=== PATIENT | male | born 2005 ===

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

== ENCOUNTER 2024-03-22 08:07 | Outpatient (AMB) | payer MEDICAID, SELFPAY ==
--- NOTE | 2024-03-22 11:38 | MHC.OFFVISWM ---
VS Expanded 03/22/24 11:53 Height 5 ft 8 in Weight 269 lb 2 oz BMI 40.9 Body Fat % 40.8 Body Fat Mass 109.8 Fat Free Mass 159.4 Visceral Fat Rating 19 Body Water % 40.8 Body Water Mass 109.8 Basal Metabolic Rate/Score 2,302 Intake Visit Reasons: [employer] BMI 40.9 Allergies banana Allergy (Mild, Verified 07/27/21 11:33) Redness of Skin SEASONAL ALLERGIES Allergy (Unknown, Uncoded 07/27/21 11:32) ITCHY EYES Medication List - Last Reconciled 03/22/24 by Gibson Dawson MD adalimumab (Humira(CF) Pen) 80 mg subcut DAILY albuterol 90 mcg/actuation mcg inhalation epinephrine IM DIRECTED flash glucose sensor (FreeStyle Randy 2 Sensor kit) As directed inhalational spacing device (ProChamber) As directed insulin lispro (Humalog Alec KwikPen (U-100)) 1 sliding scale dose subcut USEASDIRECTD semaglutide (Ozempic) 1 mg subcut QWEEK HPI HPI [employer] BMI 40.9: Details: Start time: 11.30am, End time: 12.11pm ?I spent 36 minutes speaking with the patient on the phone plus an additional 5 minutes reviewing and updating records for a total of 41 minutes HPI Comments Details: Previous weight loss efforts: Ozempic and Weight Management HHC: 7lbs in one year Wakes up: 1pm, Sleeps: 3am Breakfast: 10am (eggs and bread) Lunch: 3-4pm (burger and sandwiches, rice/beans and chicken) Dinner: 7pm (pasta, rice, chicken, burritos) Snacks: 5-6pm (Oreos, chips), 9-10pm (chips, oreos, burger, tortilla) Exercise: none Fluids: Coffee/tea: none, soda: diet soda, fluids: Crystal light, ETOH: none PFSH Medical History (Updated 03/22/24 @ 11:46 by Gibson Dawson MD) Asthma Insulin dependent type 2 diabetes mellitus Hidradenitis suppurativa Morbid obesity Abscess Surgical History History of appendectomy Family History (Updated 02/20/24 @ 13:56 by Isela Toro CMA) Mother No problems noted. Father No problems noted. Social History (Updated 02/20/24 @ 13:56 by Isela Toro CMA) Alcohol intake: never Patient Tobacco Use Status: Never used Tobacco Telehealth Telehealth Telehealth Platform: Telephone Location of provider rendering services: practice address Location of patient: address on file Patient Identification confirmed using: Name, : Yes Telehealth method: voice only Patient verbally consented to treatment: Yes Patient verbally consented to billing insurance company: Yes Patient informed of any privacy concerns related to visit: Yes Minutes spent on Phone/Video with Pt.: 41 Assessment & Plan Assessment & Plan (1) Morbid obesity: Code(s): E66.01 - Morbid (severe) obesity due to excess calories Category: Medical Plan: 1.? Plan for lap sleeve gastrectomy. If diaphragmatic or ventral hernias are present at time of surgery, these will be repaired laparoscopically as well. I emphasized the importance of close follow-up, adherence to instructions and good communication. The surgery does not replace the need to change your lifestlyle which is the cause of the obesity problem. The surgery provides the motivation to try again to change your lifestyle, it reduces the appetite and make the transition to a better lifestyle easier and doubles the amount of weight you would lose compared to doing the lifestyle change without the surgery. You will need to be on a liquid diet with protein shakes for 2 weeks before surgery to maximize weight loss and boost your nutritional status to recover better from surgery and also for the first two weeks after surgery to let the stomach heal before we introduce other foods. After the first 2 weeks we will introduce protein bars and soft foods like scrambled eggs, cottage cheese and yogurt and after the 6th week will introduce meat, fish and cooked vegetables in small amounts. Over time you should be able to eat everything in small amounts. Side effects like nausea, vomiting, heartburn or abdominal pain are not common in the practice unless you are not following in the practice. This operation requires lifetime commitment to following in our practice and communication with me. You will much less weight and experience side effects if you don?t communicate or not following in the practice. Complications are rare and in our practice is about 1/10 of the national average. However, you can develop bleeding that may require transfusion (hasn?t happened for year in the practice), you may from complications (we did not have any deaths in the practice) and infections. Infections are usually a result of breakdown in communication or not understanding or following directions correctly. They are difficult to treat, they can happen during the first 6 weeks, they may require to be in the hospital for weeks or even months, not being able to eat by mouth and you may have drains and surgeries to try and correct the issue. Other risks and complications include possible conversion to an open procedure, leaks, small bowel obstruction, blood clots, cardiac, or pulmonary complications, as terminal gauger complications such as ulcers, insufficient weight loss and vitamin deficiencies. The patient is not sure she wants to proceed with surgery at this time. She does not wish to do any preoperative work-up at this time and she will get back to me if she changes her mind.
[2024-03-22 11:53] VITALS: BMI 40.9
== END 2024-03-22 12:12 | disposition home or self-care (01) ==
LOC: HO.HBS 08:07
PROVIDERS: PCP Pediatrics; Visit Provider Surgery
DX: E66.813 Obesity, class 3 (principal); Z68.55 Body mass index [BMI] pediatric, 120% of the 95th percentile for age to less than 140% of the 95th percentile for age
CPT/HCPCS: 99203

== ENCOUNTER → 2024-03-22 08:07 | Outpatient (BNVA) | payer MEDICAID, SELFPAY | PROVIDERS: PCP Pediatrics; Visit Provider Surgery ==

== ENCOUNTER 2024-05-13 13:23 | Emergency (ER) | payer MEDICAID, SELFPAY ==
[2024-05-13 13:41] VITALS: BP 118/58; PULSE 79; RESP 19; TEMP 36.6; O2SAT 98; BMI 41.1
--- NOTE | 2024-05-13 13:49 | ED.EXTPRO ---
HPI - Extremity Problem General Chief complaint: Extremity Injury, Upper Stated complaint: R Arm Pain Time Seen by Provider: 05/13/24 13:49 Source: patient and RN notes reviewed Mode of arrival: ambulatory Limitations: no limitations History of Present Illness ED Provider: Delma Loyola PA-C HPI Narrative: This is a 18-year-old male, with a history of type 2 diabetes, asthma, and hydradenitis suppurativa, who presents emergency department with concerns for right arm redness and pain. Patient states that they have a history of abscesses, and in has noticed increased pain, and drainage from the right axilla. No fevers or chills. Denies any chest pain, shortness for breath, abdominal pain, nausea, vomiting or diarrhea. Related Data Home Medications ?Medication ?Instructions ?Recorded ?Confirmed adalimumab 80 mg/0.8 mL 80 mg subcut DAILY 02/20/24 03/22/24 subcutaneous pen kit (Humira(CF) Pen) epinephrine 0.3 mg/0.3 mL IM DIRECTED anaphylaxis 02/20/24 03/22/24 injection, auto-injector flash glucose sensor (FreeStyle #1 ea 02/20/24 03/22/24 Randy 2 Sensor kit) inhalational spacing device #1 ea 02/20/24 03/22/24 (ProChamber) semaglutide 1 mg/dose (4 mg/3 mL) 1 mg subcut QWEEK 02/20/24 03/22/24 subcutaneous pen injector (Ozempic) albuterol 90 mcg/actuation aerosol mcg inhalation 03/22/24 03/22/24 inhaler insulin lispro 100 unit/mL 1 sliding scale dose subcut 03/22/24 03/22/24 subcutaneous half-unit pen USEASDIRECTD (Humalog Alec KwikPen (U-100)) Previous Rx's ?Medication ?Instructions ?Recorded cephalexin 500 mg capsule 500 mg PO QID 7 days #28 caps 05/13/24 doxycycline hyclate 100 mg capsule 100 mg PO BID 7 days #14 caps 05/13/24 Allergies Allergy/AdvReac Type Severity Reaction Status Date / Time banana Allergy Mild Redness of Verified 05/13/24 13:42 Skin SEASONAL ALLERGIES Allergy Unknown ITCHY EYES Uncoded 05/13/24 13:42 Review of Systems Review of Systems: Yes all other systems are reviewed and are negative Constitutional: Constitutional: Reports as per [facility] Past Medical History Medical History (Updated 05/13/24 @ 13:50 by PERLITA Fong) Asthma Insulin dependent type 2 diabetes mellitus Hidradenitis suppurativa Morbid obesity Abscess Surgical History History of appendectomy Family History Family History (Updated 02/20/24 @ 13:56 by Isela Toro CMA) Mother No problems noted. Father No problems noted. Social History Social History (Updated 02/20/24 @ 13:56 by Isela Toro CMA) Alcohol intake: never Patient Tobacco Use Status: Never used Tobacco Advance Directives: No Advance Directives Information Provided: Yes Do you have a plan to hurt others: No Plan Physical Exam Vital Signs: Vital Signs: Last Vital Signs Temp 98 F 05/13/24 14:07 Pulse 79 05/13/24 14:07 Resp 19 05/13/24 14:07 BP 118/58 L 05/13/24 14:07 Pulse Ox 98 05/13/24 14:07 O2 Del Method Room Air 05/13/24 14:07 BMI result Body Mass Index 41.1 Const: General: cooperative, comfortable and no acute distress Orientation/consciousness: patient oriented x3 Limitations: no limitations HEENT: Head: Yes normal to inspection, Yes normocephalic and Yes atraumatic Ears: hearing grossly normal bilaterally General nose exam: Normal external nose present Face and sinus: Yes normal facial exam Mouth: Normal oral and palatal mucosa present, oropharynx normal and moist mucous membranes Throat: Yes posterior oropharynx normal Eyes: General: appearance normal, both eyes and all related structures Eyelids: Yes eyelids normal Conjunctivae: conjunctivae normal Sclerae: sclerae normal Pupils: Equal, round and reactive pupils present EOM: EOMs intact bilaterally Neck: Neck: Yes normal visual inspection, Yes full ROM and Yes no lymphadenopathy Lymphatic: no lymphadenopathy noted Chest: Chest palpation & inspection: normal inspection of the chest Resp: Effort & Inspection: normal respiratory effort and able to speak in complete sentences Cardio: Rate: regular rate Rhythm: regular rhythm Heart sounds: S1 normal heart sound present and S2 normal heart sound present GI: Inspection: Yes normal to inspection Skin: Other: Right axilla, with 2 cm superficial abrasion noted with slight erythema, and tenderness, no induration or warmth. No fluctuance. General skin exam: no rashes or lesions noted Trauma: no lacerations or abrasions Wounds: no wounds Neuro: General: patient oriented x3 and moves all extremities Cranial nerves: Yes Equal, round and reactive pupils present Extrem: General: Yes normal to inspection Right upper extremity: normal to inspection Left upper extremity: normal to inspection Right lower extremity: normal to inspection Left lower extremity: normal to inspection Medical Decision Making Medical Decision Making MDM Narrative: This is a 18-year-old male, with a history of type 2 diabetes, and hydradenitis suppurativa who presents emergency department with complaints of right arm pain, drainage, and redness x4 days. On arrival, vital signs within normal limits. He is speaking in full sentences under no acute distress. No palpable abscess noted within the right axilla. Does have slight erythema and warmth, will treat as cellulitis. There is no area of abscess that needs to be excised and drained. Discussed findings with patient. Discussed strict return precautions. He understands agrees with plan. Discharged on doxycycline and Keflex due to history of diabetes. Patient stable for discharge Differential Diagnosis Differential Diagnoses: The differential diagnosis associated with the presentation includes Abscess, cyst, cellulitis, hydradenitis suppurativa Admission/Observation Consideration of admission/observation: Escalation of care including admission/observation considered Discharge Plan Discharge Clinical Impression: Hidradenitis suppurativa Patient Disposition: Home, Self-Care Instructions: Hidradenitis Suppurativa (ED) Additional Instructions: You were seen in the emergency department due to right arm redness and drainage. There is no abscess that we need to go ahead and open and drained at this time. Please take prescribed antibiotic as directed, finish the entire course even if your symptoms improve. Watch for any new or worsening symptoms including but not limited to increased redness, pain, drainage, swelling. If any of these occur, please return for re-evaluation. I am also giving you a referral to the [facility], they often times can help with primary care resources. Prescriptions: New cephalexin 500 mg capsule 500 mg PO QID 7 Days Qty: 28 0RF doxycycline hyclate 100 mg capsule 100 mg PO BID 7 Days Qty: 14 0RF No Action (DME) FreePromimic Randy 2 Sensor Kit See Rx Instructions .ROUTE DIRECTED Qty: 1 Rx Instructions: As directed Ozempic 1 mg/dose (4 mg/3 mL) pen injector 1 mg subcut QWEEK epinephrine 0.3 mg/0.3 mL auto-injector IM DIRECTED (DME) ProChamber Spacer See Rx Instructions .ROUTE DIRECTED Qty: 1 Rx Instructions: As directed Humira(CF) Pen 80 mg/0.8 mL pen injector kit 80 mg subcut DAILY Rx Instructions: administer as 2 x 40 mg doses per day for 2 days insulin lispro [Humalog Alec KwikPen U-100] 100 unit/mL insulin pen, half-unit 1 sliding scale dose subcut USEASDIRECTD albuterol 90 mcg/actuation aerosol inhalation Referrals: [facility] [Primary Care Provider] - Interventions: ED Discharge Assessment Last Done: 05/13/24 14:07 Discharge Date/Time: 05/13/24 14:07 Print Language: Romansh
--- OUTSIDE RECORDS SUMMARY | 2024-05-13 13:53 | XMS_ITS | Encounter Summary ---
Author Organization [facility] Address [address] [place] [address] Care Team Providers Care Public Relations Counselor Name Role Phone Britt Jalloh Primary Care Provider [phone] Encounter Details Date Type Department Care Team (Late st Contact Info) Description 08/30/2023 External Result Entry [facility] 4th Floor [address] [place] [phone] Concrete Smoother: Karey Rai LPN Social History Tobacco Use Types Packs/Day Years Used Date Smoking Tobacco: Unknown Sex and Gender Information Value Date Recorded Sex Assigned at Male 08/25/2023 11:49 AM EDT Legal Sex Male 3:26 PM EST Gender Identity Not on file Sexual Orientation Not on file documented as of this encounter Plan of Treatment Upcoming Encounters Date Type Department Care Team (Late st Contact Info) Description 06/27/2024 11:00 AM EDT Office Visit [facility] 2nd Floor [address] [place] [address] Concrete Smoother: Altagracia Sutton MD [address] [place] [address] documented as of this encounter Visit Diagnoses Not on filedocumented in this encounter Care Teams Public Relations Counselor Relationship Specialty Start Date End Date Britt Jalloh PCP - General Pediatrics 03/15/23 documented as of this encounter
--- OUTSIDE RECORDS SUMMARY | 2024-05-13 13:53 | XMS_ITS | Encounter Summary ---
Author Organization [facility] Address [address] [place] [address] 7[address] [place] [address] Care Team Providers Care Pin Machine Operator Name Role Phone Britt Jalloh MD Primary Care Provider [phone] Hui Gavin Primary Care Provider [phone] Reason for Referral * Consultation (Routine) - Closed Specialty Diagnoses / Procedures Referred By Contac t Referred To Contact Optometry Diagnoses Myopia of both eyes Britt Jalloh MD [address] [place] [address] Phone: tel: fax: Referral ID Status Reason Start Date Expiration Date V isits Requested Visits Authorized [id number] Closed Specialty Services Required 09/01/2023 08/31/2024 1 1 Encounter Details Date Type Department Care Team (Late st Contact Info) Description 09/01/2023 Orders Only [facility] [address] [place] [id number] Britt Jalloh MD [address] [place] [address] [phone] Myopia of both eyes (Primary Dx) Social History Tobacco Use Types Packs/Day Years Used Date Smoking Tobacco: Never Passive Smoke Exposure: Never Smokeless Tobacco: Never Alcohol Use Standard Drinks/Week Comments Never 0 (1 standard drink = 0.6 oz pur e alcohol) Depression Answer Date Recorded Patient Health Questionnaire-9 Score 8 08/15/2023 Patient Health Questionnaire-9 Score 8 08/15/2023 Last PHQ-9: Questionnaire Data Not on file 0 08/15/2023 Housing Stability Answer Date Recorded What is your housing situation today? I have nadia palacios 01/10/[address] you li ve. Do you have problems with any of the following? None of the above 01/10/2023 Food Insecurity Answer Date Recorded Within the past 12 months, y ou worried that your food would run out before you got money to buy more: Often true 02/28/2023 Within the past 12 months,th e food you bought just didn't last and you didn't have enough money to get more: Often true 07/2022 Transportation Answer Date Recorded In the past 12 months, has l ack of transportation kept you from medical appts, meetings, work or from getting things needed for daily living? Yes, it has kept me from medical appointments or getting medications.;Yes, it has kept me from non-medical meetings, work, or getting things that I need 02/28/2023 Utilities Answer Date Recorded In the past 12 months, has t he electric, gas, oil or water company threatened to shut off services in your home? Yes 02/28/2023 Depression Answer Date Recorded Patient Health Questionnaire-2 Score 2 08/15/2023 Sex and Gender Information Value Date Recorded Sex Assigned at Male 01/24/2022 10:28 AM EDT Legal Sex Male 10:28 AM EDT Gender Identity Male 01/24/2022 10:28 AM EDT Sexual Orientation Bisexual 10/06/2023 3: 54 PM EDT Sexual Orientation Asexual 10/06/2023 3: 54 PM EDT documented as of this encounter Plan of Treatment Scheduled Referrals Name Type Priority Associated Diagnoses Orde r Schedule Referral to Optometry, Internal Outpatient Referral Routine Myopia of both eyes Expected: 09/01/2023 (Approximate), Expires: 08/31/2024 documented as of this encounter Visit Diagnoses Diagnosis Myopia of both eyes- Primary documented in this encounter Additional Health Concerns Assessment Noted Time PHQ-9 Depression Total Score: 8 08/15/19 24 11:24 AM EDT documented as of this encounter Care Teams Pin Machine Operator Relationship Specialty Start Date End Date Britt Jalloh MD [address] [place] [id number] PCP - General Pediatrics 11/20/15 01/31/24 Hui Gavin FNP [address] [place] [id number] PCP - General Family Medicine 02/01/24 documented as of this encounter
--- OUTSIDE RECORDS SUMMARY | 2024-05-13 13:53 | XMS_ITS | Encounter Summary ---
Author Organization [employer] Address [address] [place] [address] Care Team Providers Care Professor Of Historical Theology Name Role Phone Britt Jalloh MD Primary Care Provider [phone] Hui Gavin Primary Care Provider [phone] Reason for Visit * Reason Onset Date Comments PT1 03/15/2023 Encounter Details Date Type Department Care Team (Late st Contact Info) Description 03/15/2023 Telephone [facility] [address], [place] [phone] Britt Jalloh MD [address] [place], [place] [phone] PT1 Social History Tobacco Use Types Packs/Day Years Used Date Smoking Tobacco: Never Passive Smoke Exposure: Never Smokeless Tobacco: Never Alcohol Use Standard Drinks/Week Comments Never 0 (1 standard drink = 0.6 oz pur e alcohol) Depression Answer Date Recorded Patient Health Questionnaire-9 Score 9 02/24/2023 Patient Health Questionnaire-9 Score 9 02/24/2023 Last PHQ-9: Questionnaire Data Not on file 1 04/27/2022 Housing Stability Answer Date Recorded What is [...] Date Recorded Patient Health Questionnaire-2 Score 2 02/24/2023 Sex and Gender Information Value Date Recorded Sex Assigned at Male 01/24/2022 10:28 AM EDT Legal Sex Male 10:28 AM EDT Gender Identity Male 01/24/2022 10:28 AM EDT Sexual Orientation Bisexual 10/06/2023 3: 54 PM EDT Sexual Orientation Asexual 10/06/2023 3: 54 PM EDT documented as of this encounter Miscellaneous Notes * Telephone Encounter - Nell Mathews - 03/16/2023 2:57 PM EST PT 1 Initiated using site pt will receive a notice from with instructions * Telephone Encounter - Aiden Nevarez - 03/15/2023 3:55 PM EST PT1 needed Date: 08/25/23 Time: 10:30 Visits: N/A Address: [address] [place] [id number] Facility: N/A Wheel Chair: no Claim Investigator Needed: Yes documented in this encounter Plan of Treatment Not on file documented as of this encounter Visit Diagnoses Not on filedocumented in this encounter Additional Health Concerns Assessment Noted Time PHQ-9 Depression Total Score: 9 02/25/20 23 5:02 PM EST documented as of this encounter Care Teams Professor Of Historical Theology Relationship Specialty Start Date End Date Britt Jalloh MD [address] [place] [phone] PCP - General Pediatrics 11/20/15 01/31/24 Hui Gavin FNP [address] [place] [phone] PCP - General Family Medicine 02/01/24 documented as of this encounter
--- OUTSIDE RECORDS SUMMARY | 2024-05-13 13:53 | XMS_ITS | Encounter Summary ---
Author Organization [facility] Address [address] [place] [address] Care Team Providers Care Director Of Health Education Name Role Phone Britt Jalloh MD Primary Care Provider [phone] Hui Gavin Primary Care Provider [phone] Reason for Visit * Reason Onset Date Comments PT1 12/29/2023 Encounter Details Date Type Department Care Team (Late st Contact Info) Description 12/29/2023 Telephone [facility] [address] [place], [place] [phone] Britt Jalloh MD [address] [place], [place] [phone] PT1 Social History Tobacco Use Types Packs/Day Years Used Date Smoking Tobacco: Never Passive Smoke Exposure: Never Smokeless Tobacco: Never Alcohol Use Standard Drinks/Week Comments Never 0 (1 standard drink = 0.6 oz pur e alcohol) Depression Answer Date Recorded Patient Health Questionnaire-9 Score 11 11/18/2023 Patient Health Questionnaire-9 Score 11 11/18/2023 Last PHQ-9: Questionnaire Data Not on file 0 11/18/2023 Housing Stability Answer Date Recorded What is [...] Answer Date Recorded Patient Health Questionnaire-2 Score 4 11/18/2023 Sex and Gender Information Value Date Recorded Sex Assigned at Male 01/24/2022 10:28 AM EDT Legal Sex Male 10:28 AM EDT Gender Identity Male 01/24/2022 10:28 AM EDT Sexual Orientation Bisexual 10/06/2023 3: 54 PM EDT Sexual Orientation Asexual 10/06/2023 3: 54 PM EDT documented as of this encounter Miscellaneous Notes * Telephone Encounter - Lyudmila Licona - 12/29/2023 10:29 AM EDT Patient calling requesting PT1 Home Address verified: Y/N: Yes Provider name or facility name: [facility] Facility Address: [address] [place] [address] Escort needed: Y/N: Yes Do you have a wheelchair: Y/N: No If yes- Manual or electric: n/a Visits: 1 x month documented in this encounter Plan of Treatment Not on file documented as of this encounter Visit Diagnoses Not on filedocumented in this encounter Additional Health Concerns Assessment Noted Time PHQ-9 Depression Total Score: 11 024 12:19 PM EDT documented as of this encounter Care Teams Director Of Health Education Relationship Specialty Start Date End Date Britt Jalloh MD [address] [place] [id number] PCP - General Pediatrics 11/20/15 01/31/24 Hui Gavin FNP [address] [place] [phone] PCP - General Family Medicine 02/01/24 documented as of this encounter
--- OUTSIDE RECORDS SUMMARY | 2024-05-13 13:53 | XMS_ITS | Encounter Summary ---
Author Organization [facility] Address [address] [place] [address] 7t [place] [address] Care Team Providers Care Hand Silvering Supervisor Name Role Phone Britt Jalloh MD Primary Care Provider [phone] Hui Gavin Primary Care Provider [phone] Reason for Referral * Imaging (Routine) - Closed Specialty Diagnoses / Procedures Referred By Contac t Referred To Contact Radiology Diagnoses Cervical lymphadenopathy Hidradenitis suppurativa Procedures CT Soft Tissue Neck w/ Contrast Britt Jalloh MD [address] [place] [address] Phone: tel: fax: [facility] Referral ID Status Reason Start Date Expiration Date Visits Re quested Visits Authorized [id number] Closed 08/17/2023 08/16/2024 1 1 Encounter Details Date Type Department Care Team (Late st Contact Info) Description 08/17/2023 Orders Only [facility] [address], [place] [phone] Britt Jalloh MD [address] [place], [place] [phone] Cervical lymphadenopathy (Primary Dx); Hidradenitis suppurativa Social History Tobacco Use Types Packs/Day Years [...] of this encounter Plan of Treatment Scheduled Orders Name Type Priority Associated Diagnoses Orde r Schedule CT Soft Tissue Neck w/ Contrast Imaging Routine Cervical lymphadenopathy Hidradenitis suppurativa Expected: 08/17/2023, Expires: 08/16/2024 documented as of this encounter Visit Diagnoses Diagnosis Cervical lymphadenopathy- Primary Enlargement of lymph nodes Hidradenitis suppurativa Hidradenitis documented in this encounter Additional Health Concerns Assessment Noted Time PHQ-9 Depression Total Score: 8 08/15/19 24 11:24 AM EDT documented as of this encounter Care Teams Hand Silvering Supervisor Relationship Specialty Start Date End Date Culcea, Britt, MD [address] [place] [address] PCP - General Pediatrics 11/20/15 01/31/24 Hui Gavin FNP [address] [place] [address] PCP - General Family Medicine 02/01/24 documented as of this encounter
--- OUTSIDE RECORDS SUMMARY | 2024-05-13 13:53 | XMS_ITS | Clinical Summary ---
Author Organization [facility] Address [address] [place] [phone] Phone Care Team Providers Care Dairy Equipment Mechanic Name Role Phone Unavailable Primary Care Provider Unavailabl e Immunizations Immunization Administration Dates Next Due DTaP 5 10/08/2008, 7,04/21/2005,2004,2004 Hep A, ped/adol 05/25/2006,11/15/2005 Hep B, ped/adol 04/21/2005,2004,2004 Hib (HbOC) 04/05/2006,02/09/2005,2004 IPV 10/08/2008, 6,02/09/2005,2004 Influenza Split 12/12/2012 Influenza, injectable, quadr ivalent, preservative free 12/27/2013 Influenza, injectable, trivalent 12/14/2011,02/24 MMR 10/08/2008,11/15/2005 Pneumococcal Conjugate 04/05/2006,2005,02/09/2005,2004 Varicella 10/08/2008,11/15/2005 Social History Tobacco Use Types Packs/Day Years Used Date Smoking Tobacco: Never Assessed Sex and Gender Information Value Date Recorded Sex Assigned at Not on file Legal Sex Male 4:56 PM EDT Gender Identity Not on file Sexual Orientation Not on file Last Filed Vital Signs Vital Sign Reading Time Taken Comments Blood Pressure 113/62 06/05/2014 12:00 AM EDT Pulse 88 06/05/2014 12:00 AM EDT Temperature 36.4 ??C (97.6 ??F) 12/27/2013 12:00 AM E DT Respiratory Rate - - Oxygen Saturation - - Inhaled Oxygen Concentration - - Weight 49.4 kg (109 lb) 06/05/2014 12:00 AM EDT Height 138.2 cm (4' 6.4 ) 06/05/2014 12:00 AM ED T Body Mass Index 25.89 06/05/2014 12:00 AM EDT Body Mass Index Percentile 98.16% 06/05/2014 12: 00 AM EDT Growth Chart: [facility] (Boys, 2-2 0 Years) Plan of Treatment Health Maintenance Due Date Last Done Comments Men B Vaccine (1 of 2 - Standard) 2020 Influenza Vaccines (#1) 2023 02/11/20 21, 12/28/2017, 01/05/2017, Additional history exists COVID-19 Vaccine ( - 2023-2 5 season) 2023 DTaP,Tdap,and Td Vaccines (8 - Td or Tdap) 09/03/2031 09/02/2021, 08/17/2016, 10/08/2008, Additional history exists Hepatitis B Vaccines Completed 04/21/2005, 2004, 2004, Additional history exists HIB Vaccines Completed 04/05/2006, 01/25, 2004 Pneumococcal Vaccine Completed 04/05/2006, 04/21/2005, 02/09/2005, Additional history exists Hepatitis A Vaccines Completed 05/25/2006, 11/16/19 06 IPV Vaccines Completed 10/08/2008, 03/28, 02/09/2005, Additional history exists MMR Vaccines Completed 10/08/2008, 11/15/2005 Varicella Vaccines Completed 10/08/2008, 11/15/2005 HPV Vaccines Completed 02/23/2017, 08/17/2016 Meningococcal Vaccine Completed 09/02/2021, 017
--- OUTSIDE RECORDS SUMMARY | 2024-05-13 13:53 | XMS_ITS | Referral Summary ---
Author Organization [facility] Address [address] [place] [address] Care Team Providers Care Crusher Foreman Name Role Phone Britt Jalloh Primary Care Provider [phone] Encounters Date Type Department Care Team Description 05/01/2024 Refill [facility] [address]nd [address] [place] [address], [place] [address] Ball Winder: Altagracia Sutton MD 04/30/2024 Telephone [facility] 4th Floor [address] [place] [phone] Ball Winder: Altagracia Sutton MD PAC Appt Request - Established (Dr Merritt ) 04/23/2024 Telephone [facility] [address] [phone] Ball Winder: Altagracia Sutton MD 03/26/2024 Telephone [facility] 4th Floor [address] [place] [phone] Ball Winder: Shwetha Buitrago LPN 03/06/2024 Telephone [facility] 4th Floor [address] [place] [phone] Ball Winder: Ana Rodriguez Telephone Intake, Staff PAC Appt Request - Established- Altagracia Kumari MD 03/01/2024 Documentation [facility] [address] [place] [address] Cynthia Rtoh CPhT Prior Authorization ([place] Approved for Humira 40mg/0.4ml Pen , #06/21, through [employer] [PA # [id number]]. Effective 03/01/2024 - 03/01/2025. May fill with [facility] Copay $0 #52 units /) from Last 3 Months Allergies Active Allergy Reactions Criticality Noted Date Comments Banana Rash High 05/25/2015 Facial edema Medications sertraline (ZOLOFT) 25 mg tablet SMARTSI Tablet(s) By Mouth Twice Daily 4 Active Ozempic 1 mg/dose (4 mg/3 mL) pen injector SMARTSI Milligram(s) SUB-Q Once a Week 3 Active multivitamin (THERAGRAN) tablet SMARTSI Tablet(s) By Mouth Daily 4 Active minocycline (MINOCIN,DYNACIN ) 100 mg capsule SMARTSI Capsule(s) By Mouth Twice Daily 4 Active melatonin 5 mg tablet SMARTSI-2 Tablet(s) By Mouth Every Night 4 Active Freestyle lancets 28 gauge USE DIRECTED TO CHECK BLOOD GLUCOSE UP TO 6 TIMES PER DAY. 3 Active FreeStyle Randy 2 Sensor kit USE TO REVIEW BLOOD SUGAR FOR TYPE 2 DIABETES 3 Active chlorhexidine (HIBICLENS) 4% external liquidIndication s:Hidradenitis suppurativa Apply topically to the affected area daily as needed for wound care. Wash affected areas in the shower daily. Do not apply above the neck as this is toxic to ears and eyes. 118 mL 2 4 Active acetaminophen (TYLENOL) 325 mg tablet 3 Active Ventolin HFA 90 mcg/actuation inhaler INHALE 2 PUFFS EVERY 4 HOURS NEEDED FOR WHEEZING OR SHORTNESS OF BREATH 3 Active cetirizine (ZyrTEC) 10 mg tablet SMARTSI Tablet(s) By Mouth Every Morning 3 Active EPINEPHrine (EPIPEN) 0.3 mg/0.3 mL injection syringe INJECT AUTO-INJECTOR FOR SEVERE ALLERGIC REACTION 3 Active adalimumab 80 mg/0.8 mL pen injector kitIndications:H idradenitis suppurativa Inject 2 pens (160 mg total) under the skin for 1 dose on day 1, then inject 1 pen (80 mg total) under the skin on day 15. 2.4 mL 01/03/2024 6:10 PM EDT 4 Active adalimumab (HUMIRA CF) 40 mg/0.4 mL pen injector kitIndications:H idradenitis suppurativa Inject 0.4 mL (40 mg total) under the skin once a week. Start weekly injections on day 29. 1.6 mL 5 04/26/2024 7:21 AM EST 4 Active clindamycin (CLEOCIN T) 1 % lotionIndication s:Hidradenitis suppurativa Apply to armpits, under breasts, groin area daily after showering and drying. 120mL=1month 60 mL 5 4 Active foam bandage (Mepilex) 4 X 4 bandage See admin instructions. 4 Active multivitamin-iro n-folic acid 18-400 mg-mcg tablet Take 1 tablet by mouth once a day. 4 Active ibuprofen (MOTRIN) 400 mg tablet 1 tab q 6 hours prn fever or pain 4 Active metFORMIN ER (GLUCOPHAGE XR) 500 mg tabletIndication s:Hidradenitis suppurativa,High risk medication use Take 2 tablets (1,000 mg total) by mouth daily with breakfast. 180 tablet 3 4 12/14/19 25 Active Active Problems No known active problems Social History Tobacco Use Types Packs/Day Years Used Date Smoking Tobacco: Unknown Tobacco Cessation:Counseling Given: Not Answered Sex and Gender Information Value Date Recorded Sex Assigned at Male 08/25/2023 11:49 AM EDT Legal Sex Male 3:26 PM EST Gender Identity Not on file Sexual Orientation Not on file Plan of Treatment Upcoming Encounters Date Type Department Care Team (Late st Contact Info) Description 06/27/2024 11:00 AM EDT Office Visit [facility] 2nd Floor [address] [facility], [place] [address] Ball Winder: Altagracia Sutton MD [address] [place] [address] Procedures * Due to [place] [employer] law, this organization might not be sharing negative HIV tests. Procedure Name Priority Date/Time Associated Diagnosis Comments COMPREHENSIVE METABOLIC PANEL Routine 09/08/2023 11:47 AM EDT High risk medication use HEPATITIS C ANTIBODY W/REFLEX TO HCV RNA, QUANTITATIVE PCR Routine 08/25/2023 11:52 AM EDT Hidradenitis suppurativa High risk medication use from Last 3 Months or Most Recently Relevant to Health Maintenance Results * Due to [place] [employer] law, this organization might not be sharing negative HIV tests. * (ABNORMAL) Comprehensive metabolic panel (09/08/2023 11:47 AM EDT) NA 137 135 - 145 mmol/L 09/08/2023 1:45 PM EDT [facility] K 3.9 3.5 - 5.3 mmol/L 09/08/2023 1:45 PM EDT [facility] Cl 101 98 - 107 mmol/L 09/08/2023 1:45 PM EDT [facility] CO2 24 24 - 32 mmol/L 09/08/2023 1:45 PM EDT [facility] Anion Gap 12 5 - 15 [facility] MANUAL 09/08/2023 1:45 PM EDT [facility] Glucose 191(H) 65 - 99 mg/dL 09/08/2023 1:45 PM EDT [facility] Creatinine 0.65 0.60 - 1.30 mg/dL 09/08/2023 1:45 PM EDT [facility] Calcium 9.1 8.6 - 10.5 mg/dL 09/08/2023 1:45 PM EDT [facility] Total Protein 7.7 6.0 - 8.0 g/dL 09/08/2023 1:45 PM EDT [facility] Albumin 4.3 3.5 - 5.2 g/dL 09/08/2023 1:45 PM EDT [facility] Bilirubin, Total 0.3 0.2 - 1.2 mg/dL 09/08/2023 1:45 PM EDT [facility] Alkaline Phosphatase 95 35 - 129 U/L 09/08/2023 1:45 PM EDT [facility] AST 29 10 - 40 U/L 09/08/2023 1:45 PM EDT [facility] ALT 37 10 - 40 U/L 09/08/2023 1:45 PM EDT [facility] BUN 14 7 - 23 mg/dL 09/08/2023 1:45 PM EDT [facility] eGFR >90 >=60 mL/min/1. 73m2 [facility] MANUAL 09/08/2023 1:45 PM EDT [facility] Comment:The estimated glomer ular filtration rate (eGFR) is calculated using a new formula developed by the NKF-ASN task force to eliminate race-based correction factors. The new formula uses serum/plasma creatinine, age, and gender to determine eGFR. A value below 60mls/min might indicate kidney disease and will be flagged. For additional information, see Radhames et al, Am J Kidney Dis. 2021;79(2):268- 288, A Unifying Approach for GFR estimation: Recommendations of the NKF-ASN Task Force on Reassessing the Inclusion of Race in Diagnosing Kidney Disease . Globulin, Total 3.4 2.1 - 4.2 g/dL [facility] MANUAL 09/08/2023 1:45 PM EDT [facility] A/G Ratio 1.3(L) 1.5 - 3.0 [facility] MANUAL 09/08/2023 1:45 PM EDT [facility] Blood Structure of peripheral vein / Unknown Venipuncture / Unknown 09/08/2023 11:47 AM EDT 09/08/2023 11:47 AM EDT Altagracia Kumari MD LAB BLOOD ORDERABLES Final R esult [facility] [address] [place] [address], * Hepatitis C Antibody w/Reflex to HCV RNA, Quantitative PCR (08/25/2023 11:52 AM EDT) Hepatitis C Antibody NON-REACT EMIR NON-REACT EMIR 08/26/2023 5:51 AM EDT [employer] [employer] [facility] Comment: HCV antibody was non-reactive. There is no laboratory evidence of HCV infection. In most cases, no further action is required. However, if recent HCV exposure is suspected, a test for HCV RNA (test code 18537) is suggested. For additional information please refer to http://education.Domee/faq/JBQ47z3 (This link is being provided for informational/ educational purposes only.) Blood Structure of peripheral vein / Unknown Venipuncture / Unknown 08/25/2023 11:52 AM EDT 08/25/2023 12:01 PM EDT Narrative [facility] - 08/26/2023 5:51 AM EDT [facility] Received Date:[id number] Radha Lei MD LAB BLOOD ORDERABLES Final Result [facility] [address] [facility] 3rd Floor, [place] [address], [place] [phone] [facility] [address] [facility] 3rd Floor, [place] [address], [place] [phone] from Last 3 Months or Most Recently Relevant to Health Maintenance Insurance [facility] Care Teams Crusher Foreman Relationship Specialty Start Date End Date Britt Jalloh PCP - General Pediatrics 03/15/23
--- OUTSIDE RECORDS SUMMARY | 2024-05-13 13:53 | XMS_ITS | Encounter Summary ---
Author Organization [facility] Address [address] 7t [place] [address] Care Team Providers Care Modeling Teacher Name Role Phone Britt Jalloh MD Primary Care Provider [phone] Hui Gavin Primary Care Provider [phone] Reason for Visit * Reason Onset Date Comments PT1 11/30/2023 Encounter Details Date Type Department Care Team (Late st Contact Info) Description 11/30/2023 Telephone [facility] [address] [place], [place] [phone] Britt Jalloh MD [address] [place], [place] [phone] PT1 Social History Tobacco Use Types Packs/Day [...] encounter Miscellaneous Notes * Telephone Encounter - Lis Borrego - 11/30/2023 12:27 PM EDT Patient grandmother calling requesting PT1 Home Address verified: Yes Provider name or facility name: [facility] Facility Address: [address] [place] [address] Escort needed: Yes Do you have a wheelchair: No If yes- Manual or electric: N/A Visits: 12 a year documented in this encounter Plan of Treatment Not on file documented as of this encounter Visit Diagnoses Not on filedocumented in this encounter Additional Health Concerns Assessment Noted Time PHQ-9 Depression Total Score: 11 024 12:19 PM EDT documented as of this encounter Care Teams Modeling Teacher Relationship Specialty Start Date End Date Britt Jalloh MD [address] [place] [address] PCP - General Pediatrics 11/20/15 01/31/24 Hui Gavin FNP [address] [place] [address] PCP - General Family Medicine 02/01/24 documented as of this encounter
--- OUTSIDE RECORDS SUMMARY | 2024-05-13 13:53 | XMS_ITS | Clinical Summary ---
Author Organization [facility] Address [address] [place] [address] Care Team Providers Care Baseball Winder Name Role Phone LiangBritt garcia Primary Care Provider [phone] Allergies Active Allergy Reactions Criticality Noted Date [...] Active Active Problems No known active problems Encounters Date Type Department Care Team Description 05/01/2024 Refill [facility] 2nd Floor [address] [facility], Second Floor [place] [phone] Bottom Steep Tender: Altagracia Sutton MD 04/30/2024 Telephone [facility] [address] [place] [phone] Bottom Steep Tender: Altagracia Sutton MD PAC Appt Request - Established (Dr Merritt ) 04/23/2024 Telephone [facility] [address] [place] [phone] Bottom Steep Tender: Altagracia Sutton MD 03/26/2024 Telephone [facility] [address] [place] [phone] Bottom Steep Tender: Shwetha Buitrago LPN 03/06/2024 Telephone [facility] [address] [place] [phone] Bottom Steep Tender: Ana Rodriguez Telephone Intake, Staff PAC Appt Request - Established- Altagracia Kumari MD 03/01/2024 Documentation [facility] [address] [address] Cynthia Roth CPhT Prior Authorization ([place] Approved for Humira 40mg/0.4ml Pen , #06/21, through [employer] [PA # [id number]]. Effective 03/01/2024 - 03/01/2025. May fill with [facility] Copay $0 #52 units /) from Last 3 Months Social History Tobacco Use Types Packs/Day Years [...] Description 06/27/2024 11:00 AM EDT Office Visit [facility] 2nd Floor [address] [facility], [place] [address] Bottom Steep Tender: Altagracia Sutton MD [address] [place] [address] Health Maintenance Due Date Last Done Comments HIV Screening 2004 1 Week [facility] 2004 1 Month [facility] 2004 2 Month [facility] 2004 4 Month [facility] 01/13/2005 6 Month [facility] 03/14/2005 9 Month WC 06/12/2005 12 Month [facility] 09/22/2005 15 Month [facility] 12/09/2005 18 Month [facility] 03/09/2006 24 Month [facility] 09/05/2006 30 Month [facility] 01/09/2007 3 to 21 Year [facility] 09/22/2007 Well Child Check 09/22/2007 COVID-19 Vaccine (2023-2 5 season) 2023 02/24/2023, 10/14/2020, 09/17/2020 Influenza Vaccine (#1) 2023 , 02/10/2021, 12/28/2017, Additional history exists Depression Screening and Follow-Up 03/27/2024 Social Drivers of Health Fanny ual Screening 03/27/2024 Basic Metabolic Panel 09/07/2024 09/08/2023 DTaP,Tdap,and Td Vaccines (8 - Td or Tdap) 09/03/2031 09/02/2021, 08/17/2016, 10/08/2008, Additional history exists RSV Vaccine (60+ years old a nd patients) (1 - 1-dose 75+ series) 09/22/2079 Hepatitis B Vaccines Completed 04/21/2005, 2004, 2004, Additional history exists Pneumococcal Vaccine: Pediat katelyn (0-5 Years) and At-Risk Patients (6-50 Years) Completed 04/05/2006, 04/21/2005, 02/09/2005, Additional history exists Varicella Vaccines Completed 10/08/2008, 11/15/2005 HPV Vaccines Completed 02/23/2017, 08/17/2016 Meningococcal Vaccine Completed 09/02/2021, 017 Hepatitis C Screening Completed 08/25/2023 Procedures * Due to [place] [employer] law, this organization might not be sharing [...] to Health Maintenance Results * Due to [place] [employer] law, this organization might not be sharing negative HIV tests. * (ABNORMAL) Comprehensive metabolic panel (09/08/2023 11:47 AM EDT) NA 137 135 - 145 mmol/L 09/08/2023 1:45 PM EDT [facility] K 3.9 3.5 - 5.3 mmol/L 09/08/2023 1:45 PM EDT [facility] Cl 101 98 - 107 mmol/L 09/08/2023 1:45 PM EDT [facility] CO2 24 24 - 32 mmol/L 09/08/2023 1:45 PM EDT [facility] Anion Gap 12 5 - 15 [facility] MANUAL 09/08/2023 1:45 PM EDT [facility] Glucose 191(H) 65 - 99 mg/dL 09/08/2023 1:45 PM EDT [facility] Creatinine 0.65 0.60 - 1.30 mg/dL 09/08/2023 1:45 PM EDT [facility] Calcium 9.1 8.6 - 10.5 mg/dL 09/08/2023 1:45 PM EDT [facility] Total Protein 7.7 6.0 - 8.0 g/dL 09/08/2023 1:45 PM EDT [facility] Albumin 4.3 3.5 - 5.2 g/dL 09/08/2023 1:45 PM EDT [facility] Bilirubin, Total 0.3 0.2 - 1.2 mg/dL 09/08/2023 1:45 PM EDT [facility] Alkaline Phosphatase 95 35 - 129 U/L 09/08/2023 1:45 PM EDT [facility] AST 29 10 - 40 U/L 09/08/2023 1:45 PM EDT [facility] ALT 37 10 - 40 U/L 09/08/2023 1:45 PM EDT [facility] BUN 14 7 - 23 mg/dL 09/08/2023 1:45 PM EDT [facility] eGFR >90 >=60 mL/min/1. 73m2 [facility] MANUAL 09/08/2023 1:45 PM EDT [facility] Comment:The estimated glomer ular [...] Globulin, Total 3.4 2.1 - 4.2 g/dL [facility] MANUAL 09/08/2023 1:45 PM EDT [facility] A/G Ratio 1.3(L) 1.5 - 3.0 [facility] MANUAL 09/08/2023 1:45 PM T [facility] Blood Structure of peripheral vein / Unknown Venipuncture / Unknown 09/08/2023 11:47 AM EDT 09/08/2023 11:47 AM EDT us Altagracia Kumari MD LAB BLOOD ORDERABLES Final R esult [facility] [address] [place] [address], [place] * Hepatitis C Antibody w/Reflex to HCV RNA, Quantitative PCR (08/25/2023 11:52 AM EDT) Hepatitis C Antibody NON-REACT EMIR NON-REACT EMIR 08/26/2023 5:51 AM EDT [facility] Comment: HCV antibody was non-reactive. There is no laboratory evidence of HCV infection. In most cases, no further action is required. However, if recent HCV exposure is suspected, a test for HCV RNA (test code 87253) is suggested. For additional information please refer to http://education.SurgiQuest/faq/ZMO64o3 (This link is being provided for informational/ educational purposes only.) Blood Structure of peripheral vein / Unknown Venipuncture / Unknown 08/25/2023 11:52 AM EDT 08/25/2023 12:01 PM EDT Narrative [facility] - 08/26/2023 5:51 AM EDT [facility] Received Date:[id number] Radha Lei MD LAB BLOOD ORDERABLES Final Result Performing Organization Address City/[facility]/ZIP Co de Phone Number JAZMIN KAPADIA [address] [facility] 3rd [address], [place] [address], [place] [phone] [facility] [address] [facility] 3rd Floor, [place] [address], [place] [phone] from Last 3 Months or Most Recently Relevant to [place] [id number] [facility] Care Teams Baseball Winder Relationship Specialty Start Date End Date Britt Jalloh PCP - General Pediatrics 03/15/23
--- OUTSIDE RECORDS SUMMARY | 2024-05-13 13:53 | XMS_ITS | Clinical Summary ---
Author Organization [employer] Address [address] [place] [address] 7[address] [place] [address] Care Team Providers Care City Sanitarian Name Role Phone Hui Gavin RHINA Primary Care Provider [phone] Allergies Active Allergy Reactions Criticality Noted Date Comments Banana Rash High 05/25/2015 Facial edema Medications Continuous Blood Gluc Sensor (FreeStyle Randy 2 Sensor) [facility] See Instructions, # 3 each, Refills 11, Tot. Refills 11, Maintenance, use to review blood sugars for type 2 diabetes, 11/02/21 14:53:00 EDT, Supply, 170.7, cm, 10/29/21 16:07:00 EDT, Height, 122.9, kg, 10/29/21 16:07:00 EDT, Dry Weight 11/03/19 Active glucose blood test strip See Instructions, # 200 each, Refills 11, Tot. Refills 11, Maintenance, to check BG upto x6/day for IDDM, 11/03/21 15:57:00 EDT, PA AUTH: [id number], Supply, 170.7, cm, 10/29/21 16:07:00 EDT, Height, 122.9, kg, 10/29/21 16:07:00 EDT, Dry Weight 11/04/19 Active Continuous Blood Gluc Match Up Person (FreeStyle Randy 2 [place]) device USE DIRECTED TO TEST BLOOD SUGAR 11/04/19 Active semaglutide (Ozempic, 1 MG/DOSE,) 4 MG/3ML solution pen-injector sc once a week Ac tive Blood Pressure Monitor kitIndications:Sheela vated blood pressure reading Use to check blood pressure once daily and when symptomatic. 1 kit 07/08/19 23 Active Continuous Blood Gluc Sensor (FreeStyle Randy 2 Sensor) [facility] See Instructions, # 1 each, Refills 1, Tot. Refills 1, Maintenance, use to review blood sugars for type 2 diabetes, 11/02/21 14:53:00 EDT, Supply, 170.7, cm, 10/29/21 16:07:00 EDT, Height, 122.9, kg, 10/29/21 16:07:00 EDT, Dry Weight 11/03/19 22 Active Alcohol Swabs (Alcohol Prep) 70 % pads USE DIRECTED UP TO 6 TIMES DAILY 11/04/19 22 Active insulin glargine (Lantus SoloStar) 100 UNIT/ML pen Lantus Solostar U-100 Insulin 100 unit/mL (3 mL) subcutaneous pen Inject by sub-q route. 11/04/19 22 Active BD Pen Needle Sana 2nd Gen 32G X 4 MM [facility] USE DIRECTED TO INJECT INSULIN X6-7 TIMES DAILY 05/20/19 23 Active sodium chloride (Rulo) 0.65 % nasal spray 1-2 spray on each nostril every 2-3 hours as needed for nasal congestion 30 mL 3 02/25/20 23 Active cetirizine (ZyrTEC) 10 MG tabletIndications: Non-seasonal allergic rhinitis due to other allergic trigger TAKE 1 TABLET BY MOUTH EVERY AM 90 tablet 1 02/25/20 23 Active Blood Pressure Monitoring (Omron 3 Series BP Monitor) device USE TO CHECK BLOOD PRESSURE ONCE DAILY AND WHEN EXPERENCING SYMPTOMS 07/26/19 23 Active Gauze Pads & Dressings (Gauze Dressing) 4 X4 padsIndications:Hi dradenitis suppurativa Use as directed 60 each 1 05/08/19 24 Active Multiple Vitamin (Multivitamin Adult) tabletIndications: Viral illness 1 tab daily 30 tablet 11 05/24/19 24 Active budesonide (Rhinocort AQ) 32 MCG/ACT nasal sprayIndications:N on-seasonal allergic rhinitis due to other allergic trigger Administer 1-2 sprays into each nostril in the morning. 8.43 mL 3 06/15/19 24 025 Active melatonin 5 MG tabletIndications: Sleep disturbance TAKE 1 TO 2 TABLETS BY MOUTH EVERY NIGHT 1 HOUR BEFORE BEDTIME FOR SLEEP 180 tablet 08/08/19 24 Active minocycline 100 MG capsuleIndications :Hidradenitis suppurativa,Hydrad enitis TAKE 1 CAPSULE BY MOUTH TWICE DAILY 60 capsule 08/08/19 24 Active EPINEPHrine (Epipen) 0.3 MG/0.3ML injection syringeIndications :Allergy to banana INJECT AUTO-INJECTOR FOR SEVERE ALLERGIC REACTION 6 each 1 08/08/19 24 Active Acetaminophen Extra Strength 500 MG tabletIndications: Acute rhinosinusitis TAKE 1 TABLET BY MOUTH EVERY 6 HOURS NEEDED FOR MILD PAIN 60 tablet 08/08/19 24 Active ibuprofen 400 MG tabletIndications: Viral illness 1 tab q 6 hours prn fever or pain 30 tablet 09/21/19 24 Active Chlorhexidine Gluconate 4 % solution Apply topically if needed each day. 08/25/19 24 Active clindamycin (Cleocin T) 1 % lotion Apply to armpits, under breasts, groin area daily after showering and drying. 120mL=1month 09/08/19 24 Active metFORMIN XR (Glucophage-XR) 500 MG 24 hr tablet Take 1,000 mg by mouth with breakfast. 09/08/19 24 025 Active sertraline (Zoloft) 50 MG tabletIndications: Current moderate episode of major depressive disorder without prior episode (CMS/HCC),Anxiety 1 tab po twice daily. 60 tablet 1 11/18/19 24 Active albuterol (Ventolin HFA) 108 (90 Base) MCG/ACT inhalerIndications :Wheezing Take 2 puffs by inhalation q 4 hrs prn wheezing, cough 18 g 1 11/18/19 24 Active Active Problems Problem Noted Date Diagnosed Date Hidradenitis suppurativa 11/18/2022 Steatosis of liver 03/09/2022 Mixed anxiety and depressive disorder 03/09/2022 Acne 03/09/2022 Type 2 diabetes mellitus wit h other skin complication, without long-term current use of insulin 01/05/2022 Obesity, childhood 01/05/2022 Deformity of foot 10/20/2016 Resolved Problems Problem Noted Date Diagnosed Date Resolved Date Electrocardiogram abnormal 12/08/2020 1 04/27/2022 Injury of foot 09/22/2015 02/24/2023 Encounters Date Type Department Care Team Description 05/09/2024 Patient Outreach [facility] [address] [place] [address] Hui Gavin FNP Care Coordination ([facility] outreach for SDOH PT-1 and food needs-referral completed /) 05/09/2024 Telephone [facility] [address] [place] [address] Hui Gavin FNP PT-1 04/18/2024 11:15 AM EST Office Visit [facility] [address] [place] [address] Mary Ware, OD Myopia of both eyes (Primary Dx) 02/27/2024 3:15 PM EST Office Visit [facility] [address] [place] [address] Nita Cejaica, OD Controlled type 2 diabetes mellitus without complication, without long-term current use of insulin ([facility]) (Primary Dx); Myopia of both eyes 02/27/2024 Travel 02/13/2024 Telephone [facility] [address] [place] [phone] Hui Gavin FNP 02/12/2024 Telephone [facility] [address] [place] [phone] Carroll Agee MD [facility] Follow up from Last 3 Months Immunizations Name Administration Dates Next Due DTaP 10/08/2008, 7,04/21/2005,02/09,2004 DTaP / Hep B / IPV 2004 DTaP, 5 pertussis antigens 10/08/2008,,04/21/2005,02/09,2004 HPV 9-Valent 02/23/2017,08/17/2016 Hep A, Unspecified 05/25/2006,11/15/2005 Hep A, ped/adol, 2 dose 05/25/2006,11/15/2005 Hep B, Adolescent or Pediatric 04/21/2005,2004,2004 Hep B, Unspecified 04/21/2005,2004, 005 HiB, unspecified 04/05/2006,02/09/2005, 5 Hib (HbOC) 04/05/2006,02/09/2005,2004 IPV 10/08/2008, 6,02/09/2005,12/10 Influenza injectable quadriv alent IIV4 with preservative 02/24/2023,12/27/2013 Influenza injectable quadriv alent preservative free 02/10/2021,12/28/2017,01/05/2017,01/13,01/07/2015,12/27/2013 Influenza, IIV3, injectable 12/14/2011, 1 Influenza, Split (incl. [place] antigen) 12/12/2012 MMR 10/08/2008,11/15/2005 Meningococcal MCV4P ACYW-135 09/02/2021,08/18/19 17 Pfizer Covid-19 Vaccine 12+ 02/24/2023 Pneumococcal Conjugate PCV 7 04/05/2006, 04/21/2005,02/09/2005,12/10 Tdap 09/02/2021,08/17/2016 Varicella 10/08/2008,11/15/2005 Family History Medical History Relation Name Comments Glaucoma Father Diabetes Mother Relation Name Status Comments Father Mother Social History Tobacco Use Types Packs/Day Years Used Date Smoking Tobacco: Never Passive Smoke Exposure: Never Smokeless Tobacco: Never Tobacco Cessation:Counseling Given: Not Answered Alcohol Use Standard Drinks/Week Comments Never 0 [...] Orientation Asexual 10/06/2023 3: 54 PM EDT Last Filed Vital Signs Vital Sign Reading Time Taken Comments Blood Pressure 118/74 01/24/2024 2:09 PM EDT Pulse 80 01/24/2024 2:09 PM EDT Temperature 36.8 ??C (98.2 ??F) 01/24/2024 2:09 PM ED T Respiratory Rate 20 01/24/2024 2:09 PM EDT Oxygen Saturation 96% 2023 9:32 AM EDT Inhaled Oxygen Concentration - - Weight 123 kg (271 lb 3.2 oz) 01/24/2024 2:09 PM EDT Height 171.5 cm (5' 7.5 ) 01/24/2024 2:09 PM EDT Body Mass Index 41.85 01/24/2024 2:09 PM EDT Plan of Treatment Health Maintenance Due Date Last Done Comments Chlamydia and Gonorrhea Screening 2004 HIV Screening 2004 Fluoride Varnish 05/24/2005 Diabetes: Foot Exam 2014 Alcohol/Substance Use Screening 2016 Family Planning (PISQ) 09/22/2019 Hepatitis C Screening 2022 Diabetes: Hemoglobin A1C 08/09/2023 024, 06/29/2021, 10/23/2020 Diabetes: Urine Protein Screening 09/22/2023 Pneumococcal Vaccine: Pediatrics (0 to 5 Years) and At-Risk Patients (6 to 49) Years) (1 of 2 - PCV) 09/22/2023 04/05/2006, 04/21/2005, 02/09/2005, Additional history exists COVID-19 Vaccine (4 - season) 2023 02/24/2023, 10/14/2020, 09/17/2020 Influenza Vaccine (#1) 2023 , 02/10/2021, 12/28/2017, Additional history exists SDOH Screening 02/29/2024 02/28/2023 Lipid Panel 05/11/2024 05/11/2023 Depression Monitoring (PHQ-9) 05/20/2024 11/18/2023, 11/18/2023 Depression Screening 11/17/2024 11/18/2023, 11/18/19 Tobacco Screening 02/26/2025 02/27/2024 Eye Exam 02/26/2026 02/27/2024, 12/05/2023, 02/27/2024, Additional history exists DTaP/Tdap/Td Vaccines (8 - Td or Tdap) 09/03/2031 09/02/2021, 08/17/2016, 10/08/2008, Additional history exists Zoster Vaccines (1 of 2) 2054 RSV Patients and Patients Aged 60 years or older (1 - 1-dose 75+ series) 09/22/2079 Hepatitis B Vaccines Completed 04/21/2005, 04/21/2005, 2004, Additional history exists HIB Vaccines Completed 04/05/2006, 03/27, 02/09/2005, Additional history exists Hepatitis A Vaccines Completed 05/25/2006, 05/25/2006, 11/15/2005, Additional history exists IPV Vaccines Completed 10/08/2008, 03/28, 02/09/2005, Additional history exists MMR Vaccines Completed 10/08/2008, 11/15/2005 Varicella Vaccines Completed 10/08/2008, 11/15/2005 HPV Vaccines Completed 02/23/2017, 08/17/2016 Meningococcal Vaccine Completed 09/02/2021, 05/24/2 017 RSV under 20 months Aged Out No longe r eligible based on patient's age to complete this topic Rotavirus Vaccines Aged Out No longer eligible based on patient's age to complete this topic Procedures Procedure Name Priority Date/Time Associated Diagnosis Comments HEMOGLOBIN A1C Routine 05/11/2023 12:29 PM EST Severe obesity due to excess calories with serious comorbidity and body mass index (BMI) greater than 99th percentile for age in pediatric patient LIPID PANEL, STANDARD Routine 05/11/2023 12:29 PM EST Severe obesity due to excess calories with serious comorbidity and body mass index (BMI) greater than 99th percentile for age in pediatric patient from Last 3 Months or Most Recently Relevant to Health Maintenance Results * Hemoglobin A1c (05/11/2023 12:29 PM EST) Hemoglobin A1c 5.8 <6.0 % [facility] Comment:Hemoglobin A1C Refer ence Range Adults: 4.8 - 6.0 % Non diabetic: < 6.0 % Goal: < 7.0 %Additional Action Suggested: > 8.0 %Note: Hemoglobin A1c results are invalid for patients with abnormal amounts of HbF. Blood transfusions may impact the HbA1c concentration in the patient sample. Estimated Average Glucose 120 mg/dL [facility] Comment:eAG = Estimated ave rage glucose which is %A1C expressed asaverage glucose, using the formula of the [id number] Glucose study (ADAG), Diabetes Care, Vol.31,#8,Oct. 2007 Blood Venous blood specimen / Unknown 05/11/2023 12:29 PM EST 05/11/2023 1:06 PM EST us Britt Jalloh MD LAB BLOOD ORDERABLES Final Re sult [facility] [address] [place] [phone] * Lipid Panel (05/11/2023 12:29 PM EST) Triglycerides 92 <150 mg/dL [facility] Comment:Desirable Triglyceri de: less than 90 mg/dLBorderline High Triglyceride: 90-129 mg/dLHigh Triglyceride: greater than 130 mg/dL Cholesterol 132 <200 mg/dL [facility] Comment:Desirable Cholestero l: less than 170 mg/dLBorderline High Cholesterol: 170-199 mg/dLHigh Cholesterol: greater than 200 mg/dL LDL Cholesterol Calculated 72 <100 mg/dL [facility] Comment:Desirable LDL: less than 110 mg/dLBorderline LDL: 110-129 mg/dLHigh LDL: greater than or equal to 130 mg/dL HDL Cholesterol 42 >40 mg/dL [facility] Comment:Desirable HDL: great er than 45 mg/dLBorderline HDL: 40-45 mg/dLLow HDL: less than 40 mg/dL Note: This HDL assay may give artificially low results in patients with liver disease. Blood Venous blood specimen / Unknown 05/11/2023 12:29 PM EST 05/11/2023 12:57 PM EST Britt Jalloh MD LAB BLOOD ORDERABLES Final Re sult [facility] [address] [place] [address] [phone] from Last 3 Months or Most Recently Relevant to Health Maintenance Insurance [facility] C3 [facility] C3 Care Teams City Sanitarian Relationship Specialty Start Date End Date Hui Gavin FNP [address] [place] [address] PCP - General Family Medicine 02/01/24
--- OUTSIDE RECORDS SUMMARY | 2024-05-13 13:53 | XMS_ITS | Encounter Summary ---
Author Organization [facility] Address [address] [place] [address] Phone Care Team Providers Care Sales Strategy Manager Name Role Phone Sathya Rodriguez MD Primary Care Provider [phone] Encounter Details Date Type Department Care Team (Late st Contact Info) Description 11/10/2016 Conversion Encounter [facility] [address] [place] [address] Social History Tobacco Use Types Packs/Day Years Used Date Smoking Tobacco: Never Assessed Sex and Gender Information Value Date Recorded Sex Assigned at Not on file Legal Sex Male 4:56 PM EDT Gender Identity Not on file Sexual Orientation Not on file documented as of this encounter Plan of Treatment Not on file documented as of this encounter Visit Diagnoses Not on filedocumented in this encounter Care Teams Sales Strategy Manager Relationship Specialty Start Date End Date Sathya Rodriguez MD [address] [place] [address] PCP - General 11/04/16 09/19/22 documented as of this encounter
--- OUTSIDE RECORDS SUMMARY | 2024-05-13 13:53 | XMS_ITS | Encounter Summary ---
Author Organization [employer] Address [address] [place] [address] Care Team Providers Care Bar Staff Name Role Phone KelJose tavaresupe SOAP CHIPPER Primary Care Provider [phone] Encounter Details Date Type Department Care Team (Late st Contact Info) Description 04/18/2024 11:15 AM EST Office Visit [facility] [address] [place], [place] [phone] Chaz, Mary, OD [address] [place] [address] Myopia of both eyes (Primary Dx) Social [...] PM EDT documented as of this encounter Progress Notes * Mary Ware OD - 04/18/2024 11:15 AM EST MH glasses were dispensed. documented in this encounter Plan of Treatment Not on file documented as of this encounter Visit Diagnoses Diagnosis Myopia of both eyes- Primary documented in this encounter Additional Health Concerns Assessment Noted Time PHQ-9 Depression Total Score: 11 024 12:19 PM EDT documented as of this encounter Care Teams Bar Staff Relationship Specialty Start Date End Date Hui Gavin FNP [address] [place] [phone] PCP - General Family Medicine 02/01/24 documented as of this encounter
--- OUTSIDE RECORDS SUMMARY | 2024-05-13 13:53 | XMS_ITS | Clinical Summary ---
Author Organization [facility] Address [address] [place] [address] Care Team Providers Care Mc Kay Machine Operator Name Role Phone Britt Jalloh MD Primary Care Provider [phone] Source Comments Please note that some or all of the patient's information could have additional privacy protections. State laws allow health care providers to render certain types of treatment to minors without parental consent. Please do not assume that this information can be shared solely by obtaining just the consent of the patient's parent/guardian. Please determine if all or part of the patient's care was rendered without parent/guardian involvement. And, if so, obtain the minor's consent prior to disclosure.[facility] Allergies Active Allergy Reactions Criticality Noted Date Comments Banana Rash High 01/03/2022 Facial edema Medications EPINEPHrine (EPIPEN) 0.3 mg/0.3 mL injection epinephrine 0.3 mg/0.3 mL injection, auto-injector Take by injection route. Active insulin glargine (LANTUS SOLOSTAR U-100 INSULIN) 100 unit/mL (3 mL) pen See Instructions, Subcutaneous Injection Daily for IDDM, max daily dose 80U/day, # 30 mL, 11 Refills, Maintenance, 11/03/21 15:57:00 [id number], Partial fill upon patient request if the prescription is for a schedule II opioid . 2 Active Active Problems Problem Noted Date Diagnosed Date Type 2 diabetes mellitus 01/05/2022 Obesity, childhood 01/05/2022 Family History Relation Name Status Comments Father Half-brother 1 Alive Half-brother 2 Alive Mother Social History Tobacco Use Types Packs/Day Years Used Date Smoking Tobacco: Never Smokeless Tobacco: Never Other Needs Answer Date Recorded Anything else about your child you'd like help w ith? Not on file 12/09/2022 Share good news about positive changes: Not on f ile 12/09/2022 Sex and Gender Information Value Date Recorded Sex Assigned at Not on file Legal Sex Male 1:24 PM EDT Gender Identity Not on file Sexual Orientation Not on file Last Filed Vital Signs Vital Sign Reading Time Taken Comments Blood Pressure - - Pulse - - Temperature 36.3 ??C (97.3 ??F) 01/03/2022 1 0:00 AM EDT Respiratory Rate - - Oxygen Saturation - - Inhaled Oxygen Concentration - - Weight 121.3 kg (267 lb 6.7 oz) 022 10:00 AM EDT Height 171.5 cm (5' 7.5 ) 01/03/2022 10 :00 AM EDT Body Mass Index 41.27 01/03/2022 10:00 AM EDT Body Mass Index Percentile 99.73% 01/03 10:00 AM EDT Growth Chart: CDC (Boys, 2-2 0 Years) Plan of Treatment Health Maintenance Due Date Last Done Comments DTaP/TDAP/TD VACCINES (1 - Tdap) 09/22/2011 ADOLESCENT HIV SCREENING 2017 COVID-19 Vaccine (2023-2 5 season) 2023 INFLUENZA (#1) 2023 NIRSEVIMAB VACCINES UNDER 8 MONTHS Aged Out No longer eligible based on patient's age to complete this topic Insurance [facility] MEDICAID Care Teams Mc Kay Machine Operator Relationship Specialty Start Date End Date Britt Jalloh MD [address] [place] [phone] PCP - General General Pediatrics 12/08/21
--- OUTSIDE RECORDS SUMMARY | 2024-05-13 13:53 | XMS_ITS | Encounter Summary ---
Author Organization [facility] Address [address] [place] [address] Care Team Providers Care Embossing Unit Operator Name Role Phone Britt Jalloh Primary Care Provider [phone] Encounter Details Date Type Department Care Team (Late st Contact Info) Description 05/01/2024 Refill [facility] [address]nd [address] [place] [phone] Consumer Affairs Specialist: Altagracia Sutton MD [address] [place] [phone] Social History Tobacco Use Types Packs/Day Years Used Date Smoking Tobacco: Unknown Sex and Gender Information Value Date Recorded Sex Assigned at Male 08/25/2023 11:49 AM EDT Legal Sex Male 3:26 PM EST Gender Identity Not on file Sexual Orientation Not on file documented as of this encounter Miscellaneous Notes * Telephone Encounter - Lexis Martinez - 05/01/2024 1:37 PM EST Pt is calling to have his prescription for Foam Bandage Mepilex 4X4 bandage prescribed. Please call pt Lexis Zambrano documented in this encounter Plan of Treatment Upcoming Encounters Date Type Department Care Team (Late st Contact Info) Description 06/27/2024 11:00 AM EDT Office Visit [facility] 2nd Floor [address] [place] [phone] Consumer Affairs Specialist: Altagracia Sutton MD [address] [place] [address] documented as of this encounter Visit Diagnoses Not on filedocumented in this encounter Care Teams Embossing Unit Operator Relationship Specialty Start Date End Date Britt Jallho PCP - General Pediatrics 03/15/23 documented as of this encounter
--- OUTSIDE RECORDS SUMMARY | 2024-05-13 13:53 | XMS_ITS | Referral Summary ---
Author Organization [facility] Address [address] [place] [address] Care Team Providers Care Museum Registrar Name Role Phone Britt Jalloh MD Primary Care Provider [phone] Source Comments Please note that some or [...] so, obtain the minor's consent prior to disclosure.[facility] Allergies Active Allergy Reactions Criticality Noted Date Comments Banana Rash High 01/03/2022 Facial edema Medications EPINEPHrine (EPIPEN) 0.3 mg/0.3 mL injection epinephrine 0.3 mg/0.3 mL injection, auto-injector Take by injection route. Active insulin glargine (LANTUS SOLOSTAR U-100 INSULIN) 100 unit/mL (3 mL) pen See Instructions, Subcutaneous Injection Daily for IDDM, max daily dose 80U/day, # 30 mL, 11 Refills, Maintenance, 11/03/21 15:57:00 [id number], Partial fill upon patient request if the prescription is for a schedule II opioid . 2 Active Active Problems Problem Noted Date Diagnosed Date Type 2 diabetes mellitus 01/05/2022 Obesity, childhood 01/05/2022 Social History Tobacco Use Types Packs/Day Years [...] 99.73% 01/03 10:00 AM EDT Growth Chart: [facility] (Boys, 2-2 0 Years) Plan of Treatment Not on file Insurance [facility] MEDICAID Care Teams Museum Registrar Relationship Specialty Start Date End Date Britt Jalloh MD [address] [place] [phone] PCP - General General Pediatrics 12/08/21
--- OUTSIDE RECORDS SUMMARY | 2024-05-13 13:53 | XMS_ITS | Encounter Summary ---
Author Organization [employer] Address [address] [place] [address] Care Team Providers Care Application Integration Architect Name Role Phone Britt Jalloh MD Primary Care Provider [phone] Hui Gavin Primary Care Provider [phone] Encounter Details Date Type Department Care Team ([facility] st Contact Info) Description 06/15/2023 Orders Only [facility] [address] [place], [place] [phone] Britt Jalloh MD [address] [place], [place] [phone] Non-seasonal allergic rhinitis due to other allergic trigger (Primary Dx) Social History Tobacco Use Types Packs/Day Years Used Date Smoking Tobacco: Never Passive Smoke Exposure: Never Smokeless Tobacco: Never Alcohol Use Standard Drinks/Week Comments Never 0 (1 standard drink = 0.6 oz pur e alcohol) Depression Answer Date Recorded Patient Health Questionnaire-9 Score 11 06/06/2023 Patient Health Questionnaire-9 Score 11 06/06/2023 Last PHQ-9: Questionnaire Data Not on file 0 06/06/2023 Housing Stability Answer Date Recorded What is [...] Date Recorded Patient Health Questionnaire-2 Score 2 06/06/2023 Sex and Gender Information Value Date Recorded Sex Assigned at Male 01/24/2022 10:28 AM EDT Legal Sex Male 10:28 AM EDT Gender Identity Male 01/24/2022 10:28 AM EDT Sexual Orientation Bisexual 10/06/2023 3: 54 PM EDT Sexual Orientation Asexual 10/06/2023 3: 54 PM EDT documented as of this encounter Plan of Treatment Not on file documented as of this encounter Visit Diagnoses Diagnosis Non-seasonal allergic rhinitis due to other allergic trigger- Primary documented in this encounter Additional Health Concerns Assessment Noted Time PHQ-9 Depression Total Score: 11 024 11:39 AM EDT documented as of this encounter Care Teams Application Integration Architect Relationship Specialty Start Date End Date Britt Jalloh MD [address] [place] [address] PCP - General Pediatrics 11/20/15 01/31/24 Hui Gavin FNP [address] [place] [address] PCP - General Family Medicine 02/01/24 documented as of this encounter
--- OUTSIDE RECORDS SUMMARY | 2024-05-13 13:53 | XMS_ITS | Encounter Summary ---
Author Organization [employer] Address [address] 7t [place] [address] Care Team Providers Care Chicken Handler Name Role Phone Britt Jalloh MD Primary Care Provider [phone] Hui Gavin Primary Care Provider [phone] Encounter Details Date Type Department Care Team ([facility] st Contact Info) Description 02/13/2023 Telephone [facility] 230 [place], [place] [phone] Britt Jalloh MD 230 [place], [place] [phone] Social History Tobacco Use Types Packs/Day Years Used Date Smoking Tobacco: Never Passive Smoke Exposure: Never Smokeless Tobacco: Never Alcohol Use Standard Drinks/Week Comments Never 0 (1 standard drink = 0.6 oz pur e alcohol) Housing Stability Answer Date Recorded What is your housing situation today? I have nadia palacios 01/10/[address] you li ve. Do you have problems with any of the following? None of the above 01/10/2023 Food Insecurity Answer Date Recorded Within the past 12 months, y ou worried that your food would run out before you got money to buy more: Never True 01/10/2023 Within the past 12 months,th e food you bought just didn't last and you didn't have enough money to get more: Never True Transportation Answer Date Recorded In the past 12 months, has l ack of transportation kept you from medical appts, meetings, work or from getting things needed for daily living? No 01/10/2023 Utilities Answer Date Recorded In the past 12 months, has t he electric, gas, oil or water company threatened to shut off services in your home? No 01/10/2023 Sex and Gender Information Value Date Recorded [...] on filedocumented in this encounter Care Teams Chicken Handler Relationship Specialty Start Date End Date Britt Jalloh MD [address] [place] [address] PCP - General Pediatrics 11/20/15 01/31/24 Hui Gavin FNP [address] [place] [address] PCP - General Family Medicine 02/01/24 documented as of this encounter
--- OUTSIDE RECORDS SUMMARY | 2024-05-13 13:53 | XMS_ITS | Encounter Summary ---
Author Organization [facility] Address [address] [place] [address] Phone Care Team Providers Care Corrosion Control Technician Name Role Phone Sathya Rodriguez MD Primary Care Provider [phone] Encounter Details Date Type Department Care Team (Late st Contact Info) Description 12/21/2012 Documentation [facility] Family Medicine [address] [place] [address] Family Medicine, Physician [address] [place], [place] [phone] Social History Tobacco Use Types Packs/Day Years [...] on filedocumented in this encounter Care Teams Corrosion Control Technician Relationship Specialty Start Date End Date Sathya Rodriguez MD [address] [place] [address] PCP - General 11/04/16 09/19/22 documented as of this encounter
--- OUTSIDE RECORDS SUMMARY | 2024-05-13 13:53 | XMS_ITS | Encounter Summary ---
Author Organization [employer] Address [address] 7t [place] [address] Care Team Providers Care Consultant Teacher Name Role Phone Britt Jalloh MD Primary Care Provider [phone] Hui Gavin Primary Care Provider Reason for Visit * Reason Onset Date Comments Durable Medical Equipment 08/18/2023 Encounter Details Date Type Department Care Team (Late st Contact Info) Description 08/18/2023 Telephone [facility] MED[facility]INE 230 [place], [place] [phone] Britt Jalloh MD 230 [place], [place] [phone] Durable Medical Equipment Social History Tobacco Use Types Packs/Day Years [...] encounter Miscellaneous Notes * Telephone Encounter - Aiden Nevarez - 08/18/2023 3:09 PM EDT Tc from mom reporting [employer] [facility] [employer] have informed pt they will no longer be delivering any DME supply's that falls under $50 dollars. Mom is requesting a call back to see if there is an alternative pharmacy and or method for supply's to be delivered due to mom not having the sufficient transportation to pick up man supply's. Please contact mom at [phone]. documented in this encounter Plan of Treatment Not on file documented as of this encounter Visit Diagnoses Not on filedocumented in this encounter Additional Health Concerns Assessment Noted Time PHQ-9 Depression Total Score: 8 08/15/19 11:24 AM EDT documented as of this encounter Care Teams Consultant Teacher Relationship Specialty Start Date End Date Britt Jalloh MD [address] [place] [address] PCP - General Pediatrics 11/20/15 01/31/24 Hui Gavin FNP [address] [place] [address] PCP - General Family Medicine 02/01/24 documented as of this encounter
--- OUTSIDE RECORDS SUMMARY | 2024-05-13 13:53 | XMS_ITS | Encounter Summary ---
Author Organization [employer] Address [address] 7t [place] [address] Care Team Providers Care Granulating Blender Name Role Phone Britt Jalloh MD Primary Care Provider [phone] Hui Gavin Primary Care Provider [phone] Reason for Visit * Reason Onset Date Comments PT1 06/19/2023 Encounter Details Date Type Department Care Team (Late st Contact Info) Description 06/19/2023 Telephone [facility] MEDICINE 230 [place], [place] [phone] Britt Jalloh MD 230 [place], [place] [phone] PT1 Social History Tobacco Use Types Packs/Day [...] * Telephone Encounter - Nell Mathews - 06/19/2023 3:54 PM EDT Online Content Developer Name Practice Name Online Content Developer Address Online Content Developer [facility] Online Content Developer [facility] Treatment Type Status Expiration [place] [address] [id number] Approved 03/16/2024 * Telephone Encounter - Margarita Vargas - 06/19/2023 3:43 PM EDT Patient grandmother calling requesting PT1 Home Address verified: Yes Provider name or facility name: [facility] Facility Address: [address] [place] [address] Escort needed: Yes Do you have a [...] documented as of this encounter Care Teams Granulating Blender Relationship Specialty Start Date End Date Britt Jalloh MD 230 [place] [address] PCP - General Pediatrics 11/20/15 01/31/24 Hui Gavin FNP 230 [place] [address] PCP - General Family Medicine 02/01/24 documented as of this encounter
--- OUTSIDE RECORDS SUMMARY | 2024-05-13 13:53 | XMS_ITS | Encounter Summary ---
Author Organization [employer] Address [address] [facility] 7t [place] [address] Care Team Providers Care Mincing Machine Operator Name Role Phone Hui Gavin Primary Care Provider [phone] Reason for Visit * Reason Comments Care Coordination CHW outreach for SDO H PT-1 and food needs-referral completed Encounter Details Date Type Department Care Team (Latest Contact Info) Description 05/09/2024 Patient Outreach [facility] MEDICINE 230 [place] [address] Hui Gavin FNP 230 [place] [address] Care Coordination (CHW outreach for SDOH PT-1 and food needs-referral completed /) Social History Tobacco Use Types Packs/Day Years [...] the past 12 months, has t he [employer], gas, oil or water company threatened to [...] as of this encounter Progress Notes * Chicho Peñaloza - 05/09/2024 1:18 PM EST CHW Chicho Peñaloza, placed outbound call to patient for assistance with SDOH as a referral was received by the provider. Patient's name and were confirmed. Patient screened positive for the following SDOH transportation & food insecurities. CHW requested PT-[address] Plus referred family to B pantries in the local area. Patient agree to follow up with plan. Patient educated on extended clinic hours on Mondays through Wednesdays, and Walk-In Urgent Care Located in [facility]. Patient provided with after-hours line for [facility], , which offer night time triage service and option to transfer to joint special operations provider if needed. documented in this encounter Plan of Treatment Not on file documented as of this encounter Visit Diagnoses Not on filedocumented in this encounter Additional Health Concerns Assessment Noted Time PHQ-9 Depression Total Score: 11 024 12:19 PM EDT documented as of this encounter Care Teams Mincing Machine Operator Relationship Specialty Start Date End Date Hui Gavin FNP 230 [place] [address] PCP - General Family Medicine 02/01/24 documented as of this encounter
--- OUTSIDE RECORDS SUMMARY | 2024-05-13 13:53 | XMS_ITS | Encounter Summary ---
Author Organization [employer] Address [address] 7t [place] [address] Care Team Providers Care Professor Of Communication Name Role Phone Britt Jalloh MD Primary Care Provider [phone] Hui Gavin Primary Care Provider [phone] Encounter Details Date Type Department Care Team ([facility] st Contact Info) Description 05/24/2023 Orders Only [facility] 230 [place], [place] [phone] Britt Jalloh MD 230 [place], [place] [phone] Viral illness Social History Tobacco Use Types Packs/Day Years Used Date Smoking Tobacco: Never Passive Smoke Exposure: Never Smokeless Tobacco: Never Alcohol Use Standard Drinks/Week Comments Never 0 (1 standard drink = 0.6 oz pur e alcohol) Depression Answer Date Recorded Patient Health Questionnaire-9 Score 12 05/11/2023 Patient Health Questionnaire-9 Score 12 05/11/2023 Last PHQ-9: Questionnaire Data Not on file 0 05/11/2023 Housing Stability Answer Date Recorded What is [...] Date Recorded Patient Health Questionnaire-2 Score 4 05/11/2023 Sex and Gender Information Value Date Recorded Sex Assigned at Male 01/24/2022 10:28 AM EDT Legal Sex Male 10:28 AM EDT Gender Identity Male 01/24/2022 10:28 AM EDT Sexual Orientation Bisexual 10/06/2023 3: 54 PM EDT Sexual Orientation Asexual 10/06/2023 3: 54 PM EDT documented as of this encounter Plan of Treatment Not on file documented as of this encounter Visit Diagnoses Diagnosis Viral illness Unspecified viral infection, in conditions classified elsewhere and of unspecified site documented in this encounter Additional Health Concerns Assessment Noted Time PHQ-9 Depression Total Score: 12 024 1:39 PM EST documented as of this encounter Care Teams Professor Of Communication Relationship Specialty Start Date End Date Britt Jalloh MD [address] [place] [address] PCP - General Pediatrics 11/20/15 01/31/24 Hui Gavin FNP 230 [place] [address] PCP - General Family Medicine 02/01/24 documented as of this encounter
--- OUTSIDE RECORDS SUMMARY | 2024-05-13 13:53 | XMS_ITS | Encounter Summary ---
Author Organization [employer] Address [address] 7 [place] [address] Care Team Providers Care Dust Box Worker Name Role Phone Hui Gavin Primary Care Provider [phone] Reason for Visit * Reason Onset Date Comments PT-1 05/09/2024 Encounter Details Date Type Department Care Team ([facility] st Contact Info) Description 05/09/2024 Telephone [facility] MEDICINE 230 [place], [place] [phone] Hui Gavin FNP 230 [place] [address] PT-1 Social History Tobacco Use Types Packs/Day Years [...] encounter Miscellaneous Notes * Telephone Encounter - Ricardo Contreras - 05/09/2024 12:40 PM EST Patient calling requesting PT1 Home Address verified: Y/N: Yes Provider name or facility name: [address] [place] [address] [facility] Escort needed: Y/N: Yes Do you have a wheelchair: Y/N: No If yes- Manual or electric: Visits: (2 x Monthly) documented in this encounter Plan of Treatment Not on file documented as of this encounter Visit Diagnoses Not on filedocumented in this encounter Additional Health Concerns Assessment Noted Time PHQ-9 Depression Total Score: 11 024 12:19 PM EDT documented as of this encounter Care Teams Dust Box Worker Relationship Specialty Start Date End Date Hui Gavin FNP 230 [place] [address] PCP - General Family Medicine 02/01/24 documented as of this encounter
--- OUTSIDE RECORDS SUMMARY | 2024-05-13 13:53 | XMS_ITS | Encounter Summary ---
Author Organization [employer] Address [address] 7t [place] [address] Care Team Providers Care Airline Pilot/First Officer Name Role Phone Britt Jalloh MD Primary Care Provider [phone] Hui Gavin Primary Care Provider [phone] Encounter Details Date Type Department Care Team ([facility] st Contact Info) Description 05/08/[address] [facility] 230 [place], [place] [phone] Britt Jalloh MD 230 [place], [place] [phone] Hidradenitis suppurativa (Primary Dx) Social History Tobacco Use Types [...] as of this encounter Visit Diagnoses Diagnosis Hidradenitis suppurativa- Primary Hidradenitis documented in this encounter Additional Health Concerns Assessment Noted Time PHQ-9 Depression Total Score: 9 02/25/20 23 5:02 PM EST documented as of this encounter Care Teams Airline Pilot/First Officer Relationship Specialty Start Date End Date Britt Jalloh MD 230 [place] [address] PCP - General Pediatrics 11/20/15 01/31/24 Hui Gavin FNP 230 [place] [address] PCP - General Family Medicine 02/01/24 documented as of this encounter
--- OUTSIDE RECORDS SUMMARY | 2024-05-13 13:53 | XMS_ITS | Encounter Summary ---
Author Organization [facility] Address [address] [place] [address] Care Team Providers Care Beef Breaker Name Role Phone rBitt Jalloh Raciel Primary Care Provider Encounter Details Date Type Department Care Team (Late st Contact Info) Description 04/23/2024 Telephone [facility] [address]th [address] [place] [address], [place] [address] Regional Sales Engineer: Altagracia Sutton MD [address] [place] [address] Social History Tobacco Use Types Packs/Day Years Used Date Smoking Tobacco: Unknown Sex and Gender Information Value Date Recorded Sex Assigned at Male 08/25/2023 11:49 AM EDT Legal Sex Male 3:26 PM EST Gender Identity Not on file Sexual Orientation Not on file documented as of this encounter Miscellaneous Notes * Telephone Encounter - Karey Dykes LPN - 04/24/2024 9:26 AM EST May I offer apt with Dr. Michelle 05/27/24 in MDA slot for HS follow up? * Telephone Encounter - Ailyn Ramos - 04/23/2024 1:40 PM EST Pt grandmother calling states the Michelle is not doing anything for him and she is asking about Cosentyx. Asking for call back, . documented in this encounter Plan of Treatment Upcoming Encounters Date Type Department Care Team (Late st Contact Info) Description 06/27/2024 11:00 AM EDT Office Visit [facility] 2nd Floor [address] [facility], [place] [address] Regional Sales Engineer: Altagracia Sutton MD [address] [place] [address] documented as of this encounter Visit Diagnoses Not on filedocumented in this encounter Care Teams Beef Breaker Relationship Specialty Start Date End Date Britt Jalloh PCP - General Pediatrics 03/15/23 documented as of this encounter
--- OUTSIDE RECORDS SUMMARY | 2024-05-13 13:53 | XMS_ITS | Encounter Summary ---
Author Organization [facility] Address [address] [place] [address] Phone Care Team Providers Care Cytogenetics Laboratory Manager Name Role Phone Sathya Rodriguez MD Primary Care Provider [phone] Encounter Details Date Type Department Care Team (Late st Contact Info) Description 12/20/2012 Documentation [facility] Family Medicine [address] [place] [address] Family Medicine, Physician [address] [place], [place] [phone] Social History Tobacco Use Types Packs/Day Years [...] on filedocumented in this encounter Care Teams Cytogenetics Laboratory Manager Relationship Specialty Start Date End Date Sathya Rodriguez MD [address] [place] [address] PCP - General 11/04/16 09/19/22 documented as of this encounter
--- OUTSIDE RECORDS SUMMARY | 2024-05-13 13:53 | XMS_ITS | Encounter Summary ---
Author Organization [employer] Address [address] 7t [place] [address] Care Team Providers Care Director Of Curriculum Name Role Phone Britt Jalloh MD Primary Care Provider [phone] Hui Gavin Primary Care Provider [phone] Reason for Visit * Reason Onset Date Comments New Med Request 05/05/2023 Encounter Details Date Type Department Care Team (Late st Contact Info) Description 05/05/2023 Telephone [facility] MEDICINE 230 [place], [place] [phone] Britt Jalloh MD 230 [place], [place] [phone] New Med Request Social History Tobacco Use Types Packs/Day Years [...] the past 12 months, has t he [employer], gas, oil or water company threatened to [...] * Telephone Encounter - Nell Mathews - 05/18/2023 12:18 PM EST Wrapping Machine Tender Name Practice Name Wrapping Machine Tender Address Wrapping Machine Tender [facility] Wrapping Machine Tender [facility] Treatment Type Status Expiration [address] [id number] Approved 03/16/2024 Member already has PT 1 for [place] tried calling phone number provided no response if need to another address needs to call back and provide information * Telephone Encounter - Nupur Waite - 05/05/2023 2:13 PM EST Tc from grandparent requesting for provider to prescribe gauze rolls for pt to put under armpit. Any questions, contact pt at [phone] documented in this encounter Plan of Treatment Not on file documented as of this encounter Visit Diagnoses Not on filedocumented in this encounter Additional Health Concerns Assessment Noted Time PHQ-9 Depression Total Score: 9 02/25/20 23 5:02 PM EST documented as of this encounter Care Teams Director Of Curriculum Relationship Specialty Start Date End Date Britt Jalloh MD 230 [place] [address] PCP - General Pediatrics 11/20/15 01/31/24 Hui Gavin FNP 230 [place] [address] PCP - General Family Medicine 02/01/24 documented as of this encounter
--- OUTSIDE RECORDS SUMMARY | 2024-05-13 13:53 | XMS_ITS ---
Author Name [facility] Organization Unknown History of Medication Use Medication Directions Dispensed Refills Start Date End Date Stat insulin glargine (LANTUS SOLOSTAR U-100 INSULIN) 100 unit/mL (3 mL) pen See Instructions, Subcutaneous Injection Daily for IDDM, max daily dose 80U/day, # 30 mL, 11 Refills, Maintenance, 11/03/21 15:57:00 EDT, [id number], Partial fill upon patient request if the prescription is for a schedule II opioid . 11/03/2021 active alcohol swabs (ALCOHOL PADS) Pads, Medicated See Instructions, # 200 each, Refills 11, Tot. Refills 11, Maintenance, use as directed for IDDM to use before finger sticks and insulin injections up to X6/day, 02/09/21 13:24:00 EST, Supply, 170.7, cm, 01/29/21 14:43:00 EDT, Height, 110.2, kg, 01/29... 02/09/2021 02/05/2022 active clindamycin (CLEOCIN) 300 MG capsule Take 1 capsule (300 mg) by mouth 2 (two) times daily 01/03/2022 04/04/2022 active lancets (FREESTYLE LANCETS) 28 gauge Misc See Instructions, # 200 each, Refills 11, Tot. Refills 11, Maintenance, use as directed for IDDM to check BG upto x6/day, 11/03/21 15:57:00 EDT, Supply, 170.7, cm, 10/29/21 16:07:00 EDT, Height, 122.9, kg, 10/29/21 16:07:00 EDT, Dry Weight 11/03/2021 10/30/2022 active EPINEPHrine (EPIPEN) 0.3 mg/0.3 mL injection epinephrine 0.3 mg/0.3 mL injection, auto-injector Take by injection route. active Problems Problem Status Onset Date Problem Type Date of Resolution Source Encounter for consultation active EncounterDiagnosisAct [facility] Obesity, childhood active 2022-01-05 ProblemAct [facility] Type 2 diabetes mellitus active 2022-01-05 ProblemAct [facility] Suppurative hidradenitis active EncounterDiagnosisAct [facility]
--- OUTSIDE RECORDS SUMMARY | 2024-05-13 13:53 | XMS_ITS | Encounter Summary ---
Author Organization [facility] Address [address] [place] [address] Care Team Providers Care Echo Vascular Tech Name Role Phone Britt Jalloh Primary Care Provider [phone] Reason for Visit * Reason Onset Date Comments PAC Appt Request - Established 04/30/2024 Nancy Merritt Encounter Details Date Type Department Care Team (Late st Contact Info) Description 04/30/2024 Telephone [facility] 4th [address] [place] [address], [place] [phone] Isotope Hydrologist: Altagracia Sutton MD [address] [place] [phone] PAC Appt Request - Established (Dr Merritt ) Social History Tobacco Use Types Packs/Day Years Used Date Smoking Tobacco: Unknown Sex and Gender Information Value Date Recorded Sex Assigned at Male 08/25/2023 11:49 AM EDT Legal Sex Male 3:26 PM EST Gender Identity Not on file Sexual Orientation Not on file documented as of this encounter Miscellaneous Notes * Telephone Encounter - Altagracia Kumari MD - 05/02/2024 3:36 PM EST Pls call and offer 4pm on 05/09 in HS clinic. Thx Altagracia Kumari MD, [facility] * Telephone Encounter - Valorie Paz - 04/30/2024 10:08 AM EST Pt grandmother is reaching out to clinic to schedule an appointment Previous TE, states Humira is not doing anything for him and she is asking about Cosentyx Please reach out to advise Thank you documented in this encounter Plan of Treatment Upcoming Encounters Date Type Department Care Team (Late st Contact Info) Description 06/27/2024 11:00 AM EDT Office Visit [facility] 2nd Floor [address] [facility], [place] [address] Isotope Hydrologist: Altagracia Sutton MD [address] [place] [address] documented as of this encounter Visit Diagnoses Not on filedocumented in this encounter Care Teams Echo Vascular Tech Relationship Specialty Start Date End Date Britt Jalloh PCP - General Pediatrics 03/15/23 documented as of this encounter
--- OUTSIDE RECORDS SUMMARY | 2024-05-13 13:53 | XMS_ITS | Encounter Summary ---
Author Organization [employer] Address [address] 7t [place] [address] Care Team Providers Care Gaming Worker Name Role Phone Britt Jalloh MD Primary Care Provider [phone] Hui Gavin Primary Care Provider [phone] Encounter Details Date Type Department Care Team ([facility] st Contact Info) Description 02/07/2023 Telephone [facility] MEDICINE 230 [place], [place] [phone] Britt Jalloh MD 230 [place], [place] [phone] Social History Tobacco Use Types Packs/Day Years Used Date Smoking Tobacco: Never Passive Smoke Exposure: Never Smokeless Tobacco: Never Housing Stability Answer Date Recorded What is [...] on filedocumented in this encounter Care Teams Gaming Worker Relationship Specialty Start Date End Date Britt Jalloh MD 230 [place] [address] PCP - General Pediatrics 11/20/15 01/31/24 Hui Gavin FNP 230 [place] [address] PCP - General Family Medicine 02/01/24 documented as of this encounter
--- OUTSIDE RECORDS SUMMARY | 2024-05-13 13:54 | XMS_ITS | Encounter Summary ---
Author Organization [employer] Address [address] [place] [address] Care Team Providers Care Vehicle Trimmer Name Role Phone Britt Jalloh MD Primary Care Provider [phone] Hui Gavin Primary Care Provider [phone] Encounter Details Date Type Department Care Team (Late st Contact Info) Description 10/03/2023 Orders Only [facility] [address] [place], [place] [phone] Britt Jalloh MD [address] [place], [place] [phone] Social History Tobacco Use Types Packs/Day Years Used Date Smoking Tobacco: Never Passive Smoke Exposure: Never Smokeless Tobacco: Never Alcohol Use Standard Drinks/Week Comments Never 0 (1 standard drink = 0.6 oz pur e alcohol) Depression Answer Date Recorded Patient Health Questionnaire-9 Score 9 09/07/2023 Patient Health Questionnaire-9 Score 9 09/07/2023 Last PHQ-9: Questionnaire Data Not on file 0 09/07/2023 Housing Stability Answer Date Recorded What is [...] Answer Date Recorded Patient Health Questionnaire-2 Score 3 09/07/2023 Sex and Gender Information Value Date Recorded [...] Noted Time PHQ-9 Depression Total Score: 9 09/07/19 24 12:03 PM EDT documented as of this encounter Care Teams Vehicle Trimmer Relationship Specialty Start Date End Date Britt Jalloh MD [address] [place] [address] PCP - General Pediatrics 11/20/15 01/31/24 Hui Gavin FNP [address] [place] [address] PCP - General Family Medicine 02/01/24 documented as of this encounter
[2024-05-13 14:07] VITALS: BP 118/58; PULSE 79; RESP 19; TEMP 36.6; O2SAT 98
== END 2024-05-13 14:07 | disposition home or self-care (01) ==
PROVIDERS: Emergency Provider Emergency Medicine
DX: L73.2 Hidradenitis suppurativa (principal); Z79.899 Other long term (current) drug therapy
CPT/HCPCS: 99282; 99283

== ENCOUNTER 2024-10-25 11:17 | Outpatient (REF) | payer MEDICAID, SELFPAY ==
--- OUTSIDE RECORDS SUMMARY | 2024-10-25 11:22 | XMS_ITS ---
Author Name [facility] Organization Unknown History of Medication Use Medication Directions Dispensed Refills Start Date End Date Stat clindamycin (CLEOCIN) 300 MG capsule Take 1 capsule (300 mg) by mouth 2 (two) times daily 01/03/2022 04/04/2022 active lancets (FREESTYLE LANCETS) 28 gauge [facility] [place]ructions, # 200 each, Refills 11, Tot. Refills 11, Maintenance, use as directed for IDDM to check BG upto x6/day, 11/03/21 15:57:00 EDT, Supply, 170.7, cm, 10/29/21 16:07:00 EDT, Height, 122.9, kg, 10/29/21 16:07:00 EDT, Dry Weight 11/03/2021 10/30/2022 active insulin glargine (LANTUS SOLOSTAR U-100 INSULIN) 100 unit/mL (3 mL) pen See Instructions, Subcutaneous Injection Daily for IDDM, max daily dose 80U/day, # 30 mL, 11 Refills, Maintenance, 11/03/21 15:57:00 EDT, [id number], Partial fill upon patient request if the prescription is for a schedule II opioid dr... 11/03/2021 active alcohol swabs (ALCOHOL PADS) Pads, Medicated See Instructions, # 200 each, Refills 11, Tot. Refills 11, Maintenance, use as directed for IDDM to use before finger sticks and insulin injections up to X6/day, 02/09/21 13:24:00 EST, Supply, 170.7, cm, 01/29/21 14:43:00 EDT, Height, 110.2, kg, 01/29... 02/09/2021 02/05/2022 active EPINEPHrine (EPIPEN) 0.3 mg/0.3 mL injection epinephrine 0.3 mg/0.3 mL injection, auto-injector Take by injection route. active Allergies Allergen Reaction Severity Comment Documented Date Source Statu s [facility] Severe Facial edema 01/03/2022 [facility] active Problems Problem Status Onset Date Problem Type Date of Resolution Source Encounter for consultation active EncounterDiagnosisAct [facility] Obesity, childhood active 2022-01-05 ProblemAct [facility] Type 2 diabetes mellitus active 2022-01-05 ProblemAct [facility] Suppurative hidradenitis active EncounterDiagnosisAct [facility] Encounters Encounter Type Encounter Reason Primary Diagnosis Location Date Ambulatory [facility] 01/05/2022 Care Team Organization Name Specialty Phone Email Start Date End [facility] te [facility] Britt Jalloh Primary Care 01/06/2022
--- OUTSIDE RECORDS SUMMARY | 2024-10-25 11:22 | XMS_ITS | Clinical Summary ---
Author Organization [facility] Address [address] [place] [address] Care Team Providers Care Primary Montessori Teacher Name Role Phone LiangBritt garcia Primary Care Provider [phone] Allergies Active Allergy Reactions Criticality Noted Date Comments Banana Rash High 05/25/2015 Facial edema Medications sertraline (ZOLOFT) 25 mg tablet SMARTSI Tablet(s) By Mouth Twice Daily 4 Active Ozempic 1 mg/dose (4 mg/3 mL) pen injector SMARTSI Milligram(s) SUB-Q Once a Week 3 Active multivitamin (THERAGRAN) tablet SMARTSI Tablet(s) By Mouth Daily 4 Active melatonin 5 mg tablet SMARTSI-2 Tablet(s) By Mouth Every Night 4 Active Freestyle lancets 28 gauge USE DIRECTED TO CHECK BLOOD GLUCOSE UP TO 6 TIMES PER DAY. 3 Active FreeStyle Randy 2 Sensor kit USE TO REVIEW BLOOD SUGAR FOR TYPE 2 DIABETES 3 Active acetaminophen (TYLENOL) 325 mg tablet 3 Active Ventolin HFA 90 mcg/actuation inhaler INHALE 2 PUFFS EVERY 4 HOURS NEEDED FOR WHEEZING OR SHORTNESS OF BREATH 3 Active cetirizine (ZyrTEC) 10 mg tablet SMARTSI Tablet(s) By Mouth Every Morning 3 Active EPINEPHrine (EPIPEN) 0.3 mg/0.3 mL injection syringe INJECT AUTO-INJECTOR FOR SEVERE ALLERGIC REACTION 3 Active clindamycin (CLEOCIN T) 1 % lotionIndication [...] 180 tablet 3 4 12/14/19 25 Active chlorhexidine (HIBICLENS) 4% external liquidIndication s:Hidradenitis suppurativa Apply topically to the affected area daily as needed for wound care. Wash affected areas in the shower daily. Do not apply above the neck as this is toxic to ears and eyes. 118 mL 2 5 Active lidocaine-phenyl -glycer-petrol (Preparation H Rapid Rlf-Lidocn) 5-0.25-14.4-15 % creamIndications :Hidradenitis suppurativa 1 Application by Topical (top) route daily as needed (pain, itching, stinging). 28g=1month 28 g 11 5 Active silver sulfadiazine (SILVADENE) 1% creamIndications :Hidradenitis suppurativa Apply topically to the affected area once a day. Use on HS lesions 50 g 3 5 Active lidocaine-priloc enedina (EMLA) creamIndications :Hidradenitis suppurativa Apply topically to the affected area as needed for pain. Apply a thick layer of EMLA cream to skin 30-45 minutes prior to laser treatment. Cover with plastic wrap or Tegaderm. 60g=1month 60 g 5 5 Active doxycycline monohydrate (MONODOX) 100 mg capsuleIndicatio ns:Hidradenitis suppurativa Take 1 capsule (100 mg total) by mouth 2 times a day. Take with food and water. 180 capsule 1 5 12/26/19 25 Active secukinumab (COSENTYX) 150 mg/mL subcutaneous pen injectorIndicati ons:Hidradenitis suppurativa Inject 2 mL (300 mg total) under the skin every 28 days. 2 mL 5 10/10/2024 2:22 PM EDT 5 Active secukinumab (COSENTYX) 150 mg/mL subcutaneous pen injector Inject 300 mg (2 mL) under the skin once weekly at weeks 0, 1, 2, 3 and 4 then followed by 300 mg (2 mL) under the skin every 4 weeks thereafter. 2 mL 08/02/2024 9:18 PM EDT 5 Active Active Problems No known active problems [...] Pressure - - Pulse - - Temperature - - Respiratory Rate - - Oxygen Saturation - - Inhaled Oxygen Concentration - - Weight 123.8 kg (273 lb) 06/27/2024 11:04 AM EDT Height - - Body Mass Index - - Plan of Treatment Health Maintenance Due Date Last Done Comments HIV Screening 2004 1 Week [facility] 2004 1 Month [facility] 2004 2 Month [facility] 2004 4 Month [facility] 01/13/2005 6 Month [facility] 03/14/2005 9 Month [facility] 06/12/2005 12 Month [facility] 09/22/2005 15 Month [facility] 12/09/2005 18 Month [facility] 03/09/2006 24 Month [facility] 09/05/2006 30 Month [facility] 01/09/2007 3 to 21 Year [facility] 09/22/2007 Well Child Check 09/22/2007 COVID-19 Vaccine (2023-2 5 season) 2023 02/24/2023, 10/14/2020, 09/17/2020 Depression Screening and Follow-Up 03/27/2024 Social Drivers of Health Fanny ual Screening 03/27/2024 Influenza Vaccine (#1) 2024 3, 02/10/2021, 12/28/2017, Additional history exists DTaP,Tdap,and Td Vaccines (8 - Td or Tdap) 09/03/2031 09/02/2021, 08/17/2016, 10/08/2008, Additional history exists RSV Vaccine (60+ years old a nd patients) (1 - 1-dose 75+ series) 09/22/2079 Hepatitis B Vaccines Completed 04/21/2005, 2004, 2004, Additional history exists Pneumococcal Vaccine: Pediat katelyn (0-5 Years) and At-Risk Patients (6-50 Years) Completed 04/05/2006, 04/21/2005, 02/09/2005, Additional history exists MMR Vaccines Completed 10/08/2008, 11/15/2005 Varicella Vaccines Completed 10/08/2008, 11/15/2005 HPV Vaccines Completed 02/23/2017, 08/17/2016 Meningococcal Vaccine Completed 09/02/2021, 017 Hepatitis C Screening Completed 08/25/2023 Procedures * Due to [place] USEUM law, this organization might not be sharing negative HIV tests. Procedure Name Priority Date/Time Associated Diagnosis Comments HEPATITIS C ANTIBODY W/REFLEX TO HCV RNA, QUANTITATIVE PCR Routine 08/25/2023 11:52 AM EDT Hidradenitis suppurativa High risk medication use from Last 3 Months or Most Recently Relevant to Health Maintenance Results * Due to [place] USEUM law, this organization might not be sharing negative HIV tests. * Hepatitis C Antibody w/Reflex to HCV RNA, Quantitative PCR (08/25/2023 11:52 AM EDT) Hepatitis C Antibody NON-REACT EMIR NON-REACT EMIR 08/26/2023 5:51 AM EDT [employer] Comment: HCV antibody was non-reactive. There is no laboratory evidence of HCV infection. In most cases, no further action is required. However, if recent HCV exposure is suspected, a test for HCV RNA (test code 32057) is suggested. For additional information please refer to http://education.[employer]/faq/SHV43m8 (This link is being provided for informational/ educational purposes only.) Blood Structure of peripheral vein / Unknown Venipuncture / Unknown 08/25/2023 11:52 AM EDT 08/25/2023 12:01 PM EDT Narrative [facility] - 08/26/2023 5:51 AM EDT [facility] Received Date: Radha Lei MD LAB BLOOD ORDERABLES Final Result [facility] [address], [place] [address], [facility] [address], [place] [address], from Last 3 Months or Most Recently Relevant to [place] [id number] [facility] Care Teams Primary Montessori Teacher Relationship Specialty Start Date End Date Britt Jalloh PCP - General Pediatrics 03/15/23
--- OUTSIDE RECORDS SUMMARY | 2024-10-25 11:22 | XMS_ITS | Clinical Summary ---
Author Organization [facility] Address [address] [place] [id number] Phone Care Team Providers Care Pit Furnace Melter Name Role Phone Unavailable Primary Care Provider [...] 88 06/05/2014 12:00 AM EDT Temperature 36.4 C (97.6 F) 12/27/2013 12:00 AM EDT Respiratory Rate - - Oxygen Saturation - - Inhaled Oxygen Concentration - - Weight 49.4 kg (109 lb) 06/05/2014 12:00 AM EDT Height 138.2 cm (4' 6.4 ) 06/05/2014 12:00 AM ED T Body Mass Index 25.89 06/05/2014 12:00 AM EDT Plan of Treatment Health Maintenance Due Date Last Done Comments Men B Vaccine (1 of 2 - Standard) 2020 COVID-19 Vaccine (2023-2 5 season) 2023 Influenza Vaccines (#1) 2024 02/11/20 21, 12/28/2017, 01/05/2017, Additional history exists DTaP,Tdap,and Td Vaccines (8 [...]
--- OUTSIDE RECORDS SUMMARY | 2024-10-25 11:22 | XMS_ITS | Encounter Summary ---
Author Organization [employer] Address [address] [place] [address] Care Team Providers Care Network Communications Engineer Name Role Phone Britt Jalloh MD Primary Care Provider [phone] Hui Gavin Primary Care Provider [phone] Shantal Swift NP Primary Care Provider [phone] Reason for Visit * Reason Onset Date Comments PT1 11/30/2023 Encounter Details Date Type Department Care Team (Late st Contact Info) Description 11/30/2023 Telephone [facility] [address] [place], [place] [phone] Britt Jalloh MD [address] [place], [place] [phone] PT1 Social History Tobacco Use Types Packs/Day [...] verified: Yes Provider name or facility name: [facility] Facility Address: [address] [place] [address] Escort needed: Yes Do you have a [...] documented as of this encounter Care Teams Network Communications Engineer Relationship Specialty Start Date End Date Britt Jalloh MD [address] [place] [id number] PCP - General Pediatrics 11/20/15 01/31/24 Hui Gavin FNP [address] [place] [address] PCP - General Family Medicine 02/01/24 05/26/24 Shantal Swift NP [address] [place] [address] PCP - General Family Medicine 05/27/24 documented as of this encounter
[2024-10-25 13:10] LABS: Alanine Aminotransferase 31 U/L (0-40); Albumin Level 4.4 g/dL (3.5-5.0); Alkaline Phosphatase 79 U/L (39-117); Anion Gap 12 (12-20); Aspartate Amino Transferase 24 U/L (5-37); Blood Urea Nitrogen 15 mg/dL (9-16); Calcium 8.9 mg/dL (8.4-10.2); Carbon Dioxide 25 mmol/L (22-29); Chloride 106 mmol/L (96-108); Cholesterol 134 mg/dL (<200); Estimated Glomerular Filt Rate > 60; HDL Cholesterol 43 mg/dL (>40); Potassium 4.1 mmol/L (3.3-5.1); Sodium 139 mmol/L (135-145); Total Protein 7.9 g/dL (6.5-8.0); Triglycerides 66 mg/dL (<150)
[2024-10-25 13:43] LABS: HIV Num 1 0.05 S/CO (0.00-0.99); ~HepC Num1 0.10 S/CO (0.00-0.79); ~Hepatitis C Antibody Nonreactive (Nonreactive)
[2024-10-25 13:50] LABS: CT PCR Urine NOT DETECTED (Not Detect.); NG PCR Urine NOT DETECTED (Not Detect.)
== END 2024-10-25 11:18 | disposition home or self-care (01) ==
LOC: HO.HHCL 11:17
PROVIDERS: PCP Nurse Practitioner Family; Visit Provider Nurse Practitioner Family
DX: Z11.4 Encounter for screening for human immunodeficiency virus [HIV] (principal); Z11.59 Encounter for screening for other viral diseases; E11.628 Type 2 diabetes mellitus with other skin complications; Z20.2 Contact with and (suspected) exposure to infections with a predominantly sexual mode of transmission
CPT/HCPCS: 36415; 80053; 80061; 86803; 87389; 87491; 87591

== ENCOUNTER 2025-02-11 10:26 | Outpatient (REF) | payer MEDICAID, SELFPAY ==
--- NOTE | ~2025-02-11 | XR_ITS ---
EXAMINATION: XR CHEST CLINICAL INFORMATION: worsening cough with blood tinge sputum COMPARISON: Previous chest x-ray October 2020 TECHNIQUE: 2 views of the chest were obtained. FINDINGS: No significant abnormality is noted involving the heart, lungs, mediastinum, bony thorax or soft tissues. XR/XR chest 2V IMPRESSION: Unremarkable examination. Electronically signed by: Merna Perez MD 02/11/2025 12:02 PM [facility] [place]
== END 2025-02-11 10:27 | disposition home or self-care (01) ==
LOC: HO.HHCX 10:26
PROVIDERS: PCP Nurse Practitioner Family; Visit Provider Nurse Practitioner Family
DX: R05.2 Subacute cough (principal); R04.2 Hemoptysis
CPT/HCPCS: 71046

== ENCOUNTER → 2025-02-11 10:36 | Outpatient (BNV) | payer MEDICAID, SELFPAY | PROVIDERS: PCP Nurse Practitioner Family; Visit Provider Radiology Diagnostic Radiology | DX: R04.2 Hemoptysis (principal) | CPT/HCPCS: 71046 ==